=== PATIENT | female | born 1945 | race Caucasian/White ===

== ENCOUNTER 2019-02-21 08:22 | Outpatient (CLI) | payer MEDICARE, OTHER, SELFPAY ==
[2019-02-21 09:01] LABS: Abs Immature Grans 0.07 k/cumm (0.0-0.09); Absolute Basophil Count 0.04 k/cumm (0.0-0.2); Absolute Eosinophil Count 0.07 k/cumm (0.0-0.7); Absolute Lymphocyte Count 1.11 k/cumm (1.2-3.4); Absolute Monocyte Count 1.01 k/cumm (0.11-0.7); Absolute Neutrophil Count 1.77 k/cumm (1.2-6.7); Eosinophils % 1.7; HCT 26.5 % (36.0-46.0); HGB 8.2 g/dL (12.0-15.5); Immature Grans % 1.7; Lymphocytes % 27.3; Mean Corp. HGB Concentration 30.9 g/dL (32.0-36.0); Mean Corpuscular Volume 116.2 fL (80-95); Mean Platelet Volume 10.8 fL (8.0-11.0); Monocytes % 24.8; Neutrophils % 43.5; Platelet Count 246 x1000/uL (130-400); RBC 2.28 m/cumm (4.00-5.20); RBC Distribution Width 22.3 % (11.7-14.6); White Blood Cell Count 4.07 k/cumm (4.4-10.8)
[2019-02-21 09:50] LABS: Anisocytosis 2+; Diff Comment Agrees w/ Instrument
[2019-02-21 09:51] LABS: Basophilic Stippling Present; Hypochromasia 2+; Macrocytosis 2+; Microcytosis 2+; Polychromasia Present
[2019-02-21 09:53] LABS: Poikilocytes 2+
== END 2019-02-21 08:42 ==
PROVIDERS: PCP Internal Medicine; Visit Provider Internal Medicine
DX: D46.9 Myelodysplastic syndrome, unspecified (principal)
CPT/HCPCS: 36415; 86850; 86900; 86901; 85025

== ENCOUNTER → 2019-02-28 08:31 | Outpatient (CLI) | payer MEDICARE, OTHER, SELFPAY ==
[2019-02-28 09:02] LABS: Abs Immature Grans 0.01 k/cumm (0.0-0.09); Absolute Basophil Count 0.01 k/cumm (0.0-0.2); Absolute Eosinophil Count 0.04 k/cumm (0.0-0.7); Absolute Lymphocyte Count 0.58 k/cumm (1.2-3.4); Absolute Monocyte Count 0.02 k/cumm (0.11-0.7); Absolute Neutrophil Count 0.54 k/cumm (1.2-6.7); Basophils % 0.8; Eosinophils % 3.3; Immature Grans % 0.8; Lymphocytes % 48.3; Mean Corp. HGB Concentration 31.4 g/dL (32.0-36.0); Mean Corpuscular Hemoglobin 35.6 pg (27.0-33.0); Mean Corpuscular Volume 113.3 fL (80-95); Monocytes % 1.7; Neutrophils % 45.1; Platelet Count 142 x1000/uL (130-400); RBC Distribution Width 21.6 % (11.7-14.6)
[2019-02-28 09:34] LABS: HCT 20.4 % (36.0-46.0); HGB 6.4 g/dL (12.0-15.5)
[2019-02-28 09:35] LABS: Anisocytosis 3+; Diff Comment Agrees w/ Instrument
[2019-02-28 09:36] LABS: Hypochromasia 2+; Macrocytosis 2+; Microcytosis 2+; Poikilocytes 1+
[2019-02-28 13:38] VITALS: BP 119/60; PULSE 79; RESP 18; TEMP 36.5; O2SAT 99
[2019-02-28 13:53] VITALS: BP 114/56; PULSE 75; RESP 18; TEMP 36.6; O2SAT 97
[2019-02-28 14:23] VITALS: BP 135/47; PULSE 93; RESP 18; TEMP 36.7; O2SAT 98
[2019-02-28 15:30] VITALS: BP 147/68; PULSE 74; RESP 18; TEMP 36.5; O2SAT 98
== END ==
PROVIDERS: PCP Internal Medicine; Visit Provider Internal Medicine
DX: D46.9 Myelodysplastic syndrome, unspecified (principal)
CPT/HCPCS: 36415; 36430; 86850; 86900; 86901; 86920; 86945; 85025; P9016

== ENCOUNTER 2019-02-28 10:30 | Outpatient (RCR) | payer MEDICARE, OTHER, SELFPAY ==
[2019-02-28 12:43] VITALS: BP 107/62; PULSE 86; RESP 18; TEMP 36.5; O2SAT 98
[2019-02-28] MEDS: Normal Saline Flush 10 ML SYR IVP (14:50)
== END 2019-03-02 23:59 | disposition home or self-care (01) ==
LOC: INF 10:30
PROVIDERS: PCP Internal Medicine; Visit Provider Internal Medicine
DX: D46.9 Myelodysplastic syndrome, unspecified (principal); D70.9 Neutropenia, unspecified
CPT/HCPCS: 36415; 36430; 86850; 86900; 86901; 86920; 86945; 85025; P9016

== ENCOUNTER 2019-03-02 08:00 | Day surgery (SDC) | payer MEDICARE, OTHER, SELFPAY ==
--- NOTE | 2019-03-02 06:43 | W.PM.HP.N ---
Date of service: 03/02/19 Assessment and Plan (1) History of myelodysplastic syndrome: Current visit: Yes Status: Acute A\\ MDS that has progressed Her Oncologist has requested a Port P\\ Medi-port placement in the left or right subclavian vein Risks, benefits and complications reviewed with the patient. Complications include but are not limited to bleeding, infection, malfunction,pneumothorax, injury to veins or arteries, inability to place, blood clot and adverse reaction to the medications. Questions were entertained and answered to her satisfaction and she wished to proceed. No guarantees were given or implied. History of Present Illness Narrative: Mrs. Key is a pleasant 73 yo woman with a diagnoses of High Grade melodysplastic syndrome who was sent to see me for a Medi-port placement. Patient has had progression of her MDS on Arenesp. She has had some chest pain on exertion which she was told was due to her anemia. Review of Systems Cardiovascular Denies chest pain, Denies chest pain at rest, Denies chest pain with activity, Denies irregular heart rhythm, Denies palpitations and Denies dyspnea Respiratory Denies cough and Denies dyspnea Endocrine Denies palpitations [facility] Medical History (Updated 03/02/19 @ 08:35 by Gaby Ferguson) COPD (chronic obstructive pulmonary disease) (Chronic) Essential hypertension (Acute) History of anxiety (Acute) History of Connell's esophagus (Acute) History of depression (Acute) History of ETOH abuse (Acute) History of myelodysplastic syndrome (Acute) Hx of allergic rhinitis (Acute) Hx of cardiac murmur (Acute) Hx of cyst of breast (Acute) Hx of iron deficiency anemia (Acute) Hx of lichen planus (Acute) Osteoporosis (Chronic) Surgical History History of bone marrow biopsy (Acute) History of cholecystectomy (Chronic) History of colonoscopy (Chronic) History of esophagogastroduodenoscopy (EGD) (Chronic) Family History (Updated 03/02/19 @ 06:49 by Vero Tovar MD) Brother Heart disease Diabetes Mother Heart disease Emphysema lung Sister Diabetes Father Myocardial infarction (lateral wall) Social History (Updated 03/02/19 @ 06:49 by Vero Tovar MD) Smoking/Tobacco Use Status: Former Tobacco Use Quit Date: 08/03/87 Alcohol Intake: current Alcohol Intake frequency: 3 or more drinks per day Alcohol type: wine and hard liquor Drug use: Never Substance use type: does not use Details: alcohol: t-1, couple drinks Household members: spouse Number of Children: 1 Do you feel safe at home: Yes Do you feel safe in your relationship?: Yes Meds Home Medications Medication Instructions Recorded Confirmed Type amlodipine [Norvasc] 5 mg PO DAILY 03/01/19 03/02/19 History bupropion HCl 100 mg PO DAILY 03/01/19 03/02/19 History dexamethasone 0.5 mg PO BID 03/01/19 03/02/19 History fluticasone propionate [Flovent 2 puff INHALATION BID 03/01/19 03/02/19 History HFA] ipratropium-albuterol [Combivent 1 puff INHALATION Q6H PRN 03/01/19 03/02/19 History Respimat] ketoconazole 1 applic TOPICAL DAILY 03/01/19 03/02/19 History losartan [Cozaar] 100 mg PO DAILY 03/01/19 03/02/19 History montelukast [Singulair] 10 mg PO QHS 03/01/19 03/02/19 History ranitidine HCl [Zantac] 150 mg PO BID 03/01/19 03/02/19 History triamcinolone acetonide 1 applic TOPICAL DAILY PRN 03/01/19 03/02/19 History Allergies Allergy/AdvReac Type Severity Reaction Status Date / Time Influenza Virus Vaccines Allergy Intermediate Swelling/Ed Verified 03/02/19 08:23 anabell Penicillins Allergy Intermediate Skin Rash Verified 03/02/19 08:22 pneumococcal vaccine Allergy Intermediate Swelling/Ed Verified 03/02/19 08:22 [From Pneumovax 23] anabell Sulfa (Sulfonamide Allergy Intermediate Hives Verified 03/02/19 08:22 Antibiotics) Exam Const General: comfortable and no acute distress Orientation: alert and oriented x3 HENMT Head: normocephalic and atraumatic Resp Effort & Inspection: normal respiratory effort Auscultation: clear to auscultation bilaterally Cardio Rate: regular rate Rhythm: regular rhythm Heart Sounds: no gallops, murmur and no rubs Results Labs : 03/02/19 09:15
--- NOTE | 2019-03-02 06:58 | W.PM.OP ---
Date of service: 03/02/19 Time of Service: 10:50 Operative Note DATE OF PROCEDURE: 03/02/19 PRE-OP DIAGNOSIS: Myelodysplastic syndrome progression POST-OP DIAGNOSIS: same PROCEDURE: Left Subclavian vein Port placement SURGEON: Vero Tovar ANESTHESIA: MAC (ASA 3/ Abdirashid Root CRNA) ESTIMATED BLOOD LOSS: 5 PATHOLOGY: none sent COMPLICATIONS: None Patient was transported to: same day Patient's condition: stable Implants: Power Port isp MRI REF [id number] Indications: Mrs. Key is a pleasant 73 year old female with MDS which has been progressing. She is starting a new IV medication and her Oncologist has requested a Mediport. Risks, benefits, complications were reviewed with the patient in same-day surgery. Complications include but are not limited to bleeding, infection, pneumothorax, injury to subclavian vein or artery, hematoma or seroma, blood clot, malfunction and adverse reaction to the medication. Procedure Description: After informed consent was obtained the patient was taken to the operating room and placed in supine position. The patient was placed under deep sedation and once comfortable the right and left chest were prepped and draped in a sterile surgical fashion. At this point a timeout was done. The patient's name, date of , procedure to be done, potential complications, DVT prophylaxis, antibiotic given were all reviewed. Fire risk was assessed. Next 2% lidocaine mixed with half percent Marcaine with epi was injected around the clavicle on the left side as well as into the dermis and subcutaneous tissues in the left chest wall. A power port kit was opened and using the large 18-gauge needle the subclavian vein was found and venous blood was easily aspirated. The syringe was removed and the guidewire was placed without any difficulty into the subclavian vein. The needle was removed. Fluoroscopy was then done which confirmed the placement of the guidewire. A small incision was made in the skin with the guidewire entered. An incision was made with a 15 blade on the left chest wall. Using cautery a pocket was created for the port. Using the tunneler the catheter was tunneled from the newly created pocket to the guidewire. The dilator and sheath were then placed over the guidewire into the subclavian vein. The dilator and guidewire were removed. The catheter was then advanced through the sheath into the subclavian vein. While holding the catheter in place at the skin the sheath was removed. Fluoroscopy was then used again and the catheter was noted to be within the atrium and so it was pulled up until it was just above the atrium. The catheter was then cut to the right length and attached to the port. The port was placed into the pocket and fit snugly. The port was flushed with normal saline and blood was easily aspirated. The infusion needle was placed into the port and secured with a Central line dressing. The port was then flushed with another 10 cc of normal saline and then heparin. The skin was closed using 4-0 Vicryl. The skin was cleaned and dried and skin affix was applied to the port site as well as to the small stab incision underneath the clavicle. The patient was woken up and taken back to same day surgery in stable condition. Sponge, instrument, and needle counts were correct at the end of the case. A stat chest x-ray was ordered and is pending at the time of this dictation.
[2019-03-02 08:35] VITALS: BP 150/61; PULSE 94; RESP 18; TEMP 36; O2SAT 100
[2019-03-02] MEDS: Lactated Ringers 1,000 ML 80 ML IV (09:10)
[2019-03-02] MEDS: ceFAZolin 2 GM/50 ML BAG IVPB (10:10)
[2019-03-02] MEDS: Heparin 500 UNITS/5 ML SYRINGE (10:40)
[2019-03-02] MEDS: Lidocaine 2% Multi-Dose 50 ML VIAL (10:40)
--- NOTE | 2019-03-02 10:41 | DI.RAD_ITS ---
SYMPTOMS/DIAGNOSIS: PORT PLACEMENT FLUOROSCOPY: Fluoroscopy Time: 9.2 sec 9.60 mGy Under fluoroscopic control Dr. Tovar positioned a Port-a-Cath. The tip of which lies in the inferior portion of the superior vena cava. PORTABLE AP UPRIGHT CHEST: An AP upright image of the chest reveals a Port-a-Cath in good position. Its tip ending in the distal portion of the superior vena cava. The lungs are clear. There is no evidence of a pleural effusion.
[2019-03-02] MEDS: Acetaminophen 325 MG TAB 650 MG PO (11:28)
[2019-03-02 11:30] VITALS: BP 133/54; PULSE 78; RESP 16; TEMP 36.2; O2SAT 97
--- NOTE | 2019-03-02 11:46 | W.PM.DSUDISC ---
Discharge Plan Disposition Patient Disposition: HOME Condition: Good Discharge Details Reason For Visit: Port Placement Attending Provider: Vero Tovar Primary Care Provider: Marbella Adames Home Meds and New Rx's Prescriptions: Continued triamcinolone acetonide 0.5 % Ointment 1 applic TOPICAL DAILY PRNRF: 0 amlodipine [Norvasc] 5 mg Tablet 5 mg PO DAILY RF: 0 bupropion HCl 100 mg Tablet Sustained-Release 12 Hr 100 mg PO DAILY RF: 0 dexamethasone 0.5 mg/5 mL Solution 0.5 mg PO BID RF: 0 ranitidine HCl [Zantac] 150 mg Tablet 150 mg PO BID RF: 0 montelukast [Singulair] 10 mg Tablet 10 mg PO QHS RF: 0 Flovent HFA 220 mcg/actuation Hfa Aerosol Inhaler 2 puff INHALATION BID RF: 0 ketoconazole 2 % Cream 1 applic TOPICAL DAILY RF: 0 losartan [Cozaar] 100 mg Tablet 100 mg PO DAILY RF: 0 Combivent Respimat 20-100 mcg/actuation Mist 1 puff INHALATION Q6H PRNRF: 0 Discharge Instructions Instructions: Implanted Venous Access Port (GEN) Additional Instructions: Activity at Home after surgery: As tolerated. Don't place your left arm above your arm for more then a few minutes at a time Pain Medications: 1. Tylenol 650 mg every 6 hours as needed Other: 1. You may shower daily. Do not scrub the incisions 2. Do not soak the incisions for 1 week 3. You may alternate ice and heat as needed for pain and swelling Wound Care: 1. Keep the incisions clean and dry Please call our office if you develop: 1. Fevers >101.5 2. Redness and thick discharge from the wound If after hours please call the Hospital at and ask to speak to the on-call surgeon Activity:: Activity as Tolerated Diet:: As Tolerated Discharge Orders Discharge Orders: Discharge Order (Routine); Ordered 03/02/19 Ordered By: Vero Tovar DS: Diagnosis Discharge Diagnosis (1) History of myelodysplastic syndrome: Status: Acute
== END 2019-03-02 12:15 | disposition home or self-care (01) ==
PROVIDERS: PCP Internal Medicine; Visit Provider Surgery
PROC: (CPT 36561; principal; 2019-03-02 09:30)
DX: D46.9 Myelodysplastic syndrome, unspecified (principal); Z45.2 Encounter for adjustment and management of vascular access device; J44.9 Chronic obstructive pulmonary disease, unspecified; I10 Essential (primary) hypertension; K21.9 Gastro-esophageal reflux disease without esophagitis
CPT/HCPCS: 36561; 71045; 77001; 86850; 86900; 86901; 86920; NC; 85025; C1788; J0690; J2250

== ENCOUNTER 2019-03-06 08:42 | Inpatient (IN) | payer MEDICARE, OTHER, SELFPAY ==
[2019-03-06] VITALS (35 sets, daily range): BP systolic 96–143; BP diastolic 40–96; PULSE 77–93; RESP 13–22; TEMP 36.4–37.1; O2SAT 98–100
--- NOTE | 2019-03-06 09:18 | W.ED.GENAD ---
Discharge Plan Disposition Patient Disposition: [facility] INPATIENT Condition: Stable Discharge Details Chief Complaint: Palpitatns Clinical Impression: Symptomatic anemia, History of myelodysplastic syndrome, GI bleed, Status post chemotherapy Admit Date/Time: 03/06/19 12:44 Admit Provider: Andre Puente Attending Provider: Andre Puente Primary Care Provider: Marbella Adames ED Provider: Anita Coles Discharge Data Discharge Date/Time-TO BE ENTERED AT DEPARTURE: 03/06/19 14:00 Medical Decision Making 73-year-old female with history of myelodysplastic syndrome, alcohol abuse, COPD, anxiety and hypertension who presents with shortness of breath and palpitations for the past few days as well as dark stools with bright red bleeding this morning. She is two-week status post chemotherapy for her myelodysplastic syndrome. Her hemoglobin recently was 6.8 for which she received 2 units of PRBCs. She was told her palpitations and shortness of breath were likely due to her recent anemia. Vitals within normal limits. She appears nontoxic. No signs of airway compromise. Rectal exam revealed brownish-red stool which was Hemoccult positive. Her abdomen is soft and nontender. EKG notes a rate of 78, sinus with no acute ST ischemic changes. Differential diagnosis includes anemia secondary to recent chemotherapy versus GI bleed, ACS, dehydration, electrolyte abnormality. Will give bolus IV fluids, check screening labs, type and screen, chest x-ray. Labs and imaging reviewed. Hemoglobin 5.1. White blood cell count 1.11. Platelets 31. Neutrophils 44%. Troponin negative. Chest x-ray unremarkable. Case d/w hematology from [facility] --agree with plan for 2 units of PRBCs. Patient received decitabine for chemo 2 weeks ago. As patient has GI bleeding, recommend admission overnight. Patient initially was preferring to go home but is agreeable to admission. Discussed with blood bank, and 2 units of irradiated blood had already been ordered for planned transfusion tomorrow, but they will be arriving this afternoon and patient can receive these today. Case discussed with hospitalist --accepts patient for admission. Patient remains hemodynamically stable. [id number] --[facility] hematology called back to state they would like additional irradiated units of PRBCs ordered in case patient needs this. They would also recommend transfusion of a unit of platelets if patient starts bleeding more heavily. He also recommends patient be treated prophylactically with 500 mg Levaquin IV once daily, 200 mg fluconazole IV once daily, and acyclovir 400 mg IV twice daily in case of developing neutropenia considering patient's downtrending pancytopenia in the setting of myelodysplastic syndrome. Medical Records Medical records reviewed: Yes I reviewed the patient's medical records. Imaging Data Radiologic Study: Radiologist's impression: XR Chest, 2 Views EXAM DATE/TIME: 03/06/2019 9:55 AM CLINICAL HISTORY: 73 years old, female; Other: Palpitations, rule out acute disease TECHNIQUE: Imaging protocol: XR of the chest, 2 views. COMPARISON: CR XR PORTABLE CHEST AP POST LINE 03/02/2019 11:01 AM FINDINGS: Lungs: Lung lundy are stable . No focal consolidation Pleural space: Unremarkable. No pleural effusion. No pneumothorax. Heart/Mediastinum: Stable cardiac silhouette Vasculature: MediPort terminates in the superior vena cava. Bones/joints: Stable sclerotic density in the left humerus IMPRESSION: Stable appearance of the chest. No acute process Lab Data Lab results reviewed: Yes I reviewed the patient's lab results. Laboratory Tests Range/Units 03/06/19 11:05 Sodium (136-145) mmol/L 140 Potassium (3.5-5.1) mmol/L 4.3 Chloride (98-107) mmol/L 106 Carbon Dioxide (21.0-32.0) mmol/L 23.1 Anion Gap (3-11) mmol/L 10.9 BUN (7-18) mg/dL 27 H Creatinine (0.55-1.02) mg/dL 0.50 L Estimated GFR/1.73 m2 (mL/min/1.73m2) >= 60.00 Glucose (70-100) mg/dL 92 Calcium (8.5-10.1) mg/dL 8.3 L Magnesium (1.8-2.4) mg/dL 1.8 Total Bilirubin (0.2-1.0) mg/dL 0.8 AST (15-37) U/L 31 ALT (12-78) U/L 20 Alkaline Phosphatase (46-116) U/L 78 Troponin I (0.00-0.06) ng/mL < 0.05 Total Protein (6.4-8.2) g/dL 6.1 L Albumin (3.4-5.0) g/dL 3.2 L ECG Data Attestation: I personally reviewed and interpreted this ECG (s) as follows: Interpretation: Rate of 78, sinus, no acute ST elevation or depression. QTc 428. QRS 90 HPI General Mode of arrival: ambulatory. Date/Time Provider Initiated Documentation: 03/06/19 09:16. Limitations to Documentation: no limitations. Information obtained by: patient. HPI Narrative: Patient is a 73-year-old female with a history of myelodysplastic syndrome, anxiety, COPD, alcohol abuse, who presents the ED with complaint of palpitations and shortness of breath with ambulation for the past few days. She states she had a similar episode 2 weeks ago after she started chemotherapy. She states last week her hemoglobin was 6.8 and she was given 2 units of PRBCs. She states she was told by [facility] oncology that her palpitations were likely due to her anemia. She states also this morning she noted dark stool that was almost blackish mixed with bright red blood. She denies any fever, chest pain, abdominal pain, nausea or vomiting. states she drinks up to 3 glasses of wine daily. Patient states she has not drank much recently in the past few days. She had a port placed here 4 days ago. Related Data Home Medications Medication Instructions Recorded Confirmed Combivent Respimat 1 puff INHALATION Q6H PRN 03/01/19 03/06/19 Flovent HFA 2 puff INHALATION BID 03/01/19 03/06/19 amlodipine [Norvasc] 5 mg PO DAILY 03/01/19 03/06/19 bupropion HCl 100 mg PO DAILY 03/01/19 03/06/19 dexamethasone 0.5 mg PO BID 03/01/19 03/06/19 ketoconazole 1 applic TOPICAL DAILY 03/01/19 03/06/19 losartan [Cozaar] 100 mg PO DAILY 03/01/19 03/06/19 montelukast [Singulair] 10 mg PO QHS 03/01/19 03/06/19 ranitidine HCl [Zantac] 150 mg PO BID 03/01/19 03/06/19 triamcinolone acetonide 1 applic TOPICAL DAILY PRN 03/01/19 03/06/19 Allergies Allergy/AdvReac Type Severity Reaction Status Date / Time Influenza Virus Vaccines Allergy Intermediate Swelling/Ed Verified 03/02/19 08:23 anabell Penicillins Allergy Intermediate Skin Rash Verified 03/02/19 08:22 pneumococcal vaccine Allergy Intermediate Swelling/Ed Verified 03/02/19 08:22 [From Pneumovax 23] anabell Sulfa (Sulfonamide Allergy Intermediate Hives Verified 03/02/19 08:22 Antibiotics) General Stated Complaint: Palpitatns ARGELIA: 3 Review of Systems Review of Systems All systems reviewed & are unremarkable except as noted in HPI and below Constitutional Reports as per HPI, Denies chills and Denies fever(s) Eyes Denies blurry vision ENT Denies dizziness, Denies sore throat and Denies throat swelling Cardiovascular Denies chest pain, Reports palpitations and Reports dyspnea Respiratory Denies cough and Reports dyspnea Gastrointestinal Denies abdominal pain, Denies diarrhea and Denies vomiting Genitourinary Denies hematuria and Denies dysuria Musculoskeletal Denies back pain and Denies numbness Integumentary/Breasts Denies lesions and Denies rash Neurologic Denies dizziness, Denies focal weakness and Denies numbness Endocrine Reports palpitations Allergic/Immunologic Denies throat swelling [facility] Medical History (Updated 03/06/19 @ 15:43 by Mami Burnett NP) Alcohol use (Acute) Anemia (Chronic) COPD (chronic obstructive pulmonary disease) (Chronic) COPD (chronic obstructive pulmonary disease) (Chronic) Essential hypertension (Acute) History of anxiety (Acute) History of Connell's esophagus (Acute) History of depression (Acute) History of ETOH abuse (Acute) History of myelodysplastic syndrome (Acute) HTN (hypertension) (Chronic) Hx of allergic rhinitis (Acute) Hx of cardiac murmur (Acute) Hx of cyst of breast (Acute) Hx of iron deficiency anemia (Acute) Hx of lichen planus (Acute) Osteoporosis (Chronic) Surgical History History of bone marrow biopsy (Acute) History of cholecystectomy (Chronic) History of colonoscopy (Chronic) History of esophagogastroduodenoscopy (EGD) (Chronic) Family History Brother Heart disease Diabetes Mother Heart disease Emphysema lung Sister Diabetes Father Myocardial infarction (lateral wall) Social History Smoking/Tobacco Use Status: Never Alcohol Intake: current Alcohol Intake frequency: 3 or more drinks per day Alcohol type: wine and hard liquor Drug use: Never Substance use type: does not use Details: alcohol: t-1, couple drinks Household members: spouse Number of Children: 1 Do you feel safe at home: Yes Do you feel safe in your relationship?: Yes Exam Const General: cooperative, healthy appearing and no acute distress HENMT Head: normal to inspection Face and sinus: normal facial exam Eyes General: appearance normal, both eyes and all related structures Pupils: PERRL EOM: EOM intact bilaterally Neck Neck: normal visual inspection and No submandibular swelling Lymphatic: no lymphadenopathy noted Chest Chest: normal inspection of the chest, no tenderness and other (2 cm incision scar tender to palp c/w recent port placement) Resp Effort & Inspection: normal respiratory effort and able to speak in complete sentences Auscultation: clear to auscultation bilaterally Cardio Rate: regular rate Rhythm: regular rhythm GI Inspection: normal to inspection Palpation: soft, not firm, not rigid and nontender Auscultation: normal bowel sounds Rectal Exam - female: visual inspection normal and heme positive stool (brown colored stool w/ reddish color ) Rectal exam heme positive - female: 3+ Skin General skin exam: no rashes or lesions noted Neuro General: alert, awake and oriented x3 Cognition: normal cognition Speech: speech normal Motor: muscle tone normal throughout Sensory Exam: no sensory deficits noted Extrem General: normal to inspection, full ROM, normal capillary refill, no calf tenderness bilaterally and no edema Psych Appearance: grossly normal Mental Status: mental status grossly normal Speech and Movement: speech and movement normal Affect: normal affect Course Vital Signs Temperature 98.2 F 03/06/19 09:01 Pulse 80 03/06/19 09:01 Respiratory Rate 16 03/06/19 09:01 Blood Pressure 143/72 H 03/06/19 09:01 Pulse Oximetry 99 03/06/19 09:01 Temperature 98.2 F 03/06/19 09:01 Temperature Source Temporal Artery Scan 03/06/19 09:01 Pulse 80 03/06/19 09:01 Respiratory Rate 16 03/06/19 09:01 Respiratory Effort Non-Labored 03/06/19 09:10 Blood Pressure 143/72 H 03/06/19 09:01 Blood Pressure Position Supine 03/06/19 09:01 Pulse Oximetry 99 03/06/19 09:01 Oxygen Delivery Method Room Air 03/06/19 09:01 Oxygen Flow Rate 0 03/06/19 09:01
--- NOTE | 2019-03-06 10:29 | DI.RAD_ITS ---
SYMPTOMS/DIAGNOSIS: PALPITATIONS, ? ACUTE DISEASE PA AND LATERAL CHEST: Comparison is made with [id number]. A port is again noted. The heart size is normal. There is calcification at the aorta. The lungs appear clear. IMPRESSION: No acute abnormality.
--- NOTE | 2019-03-06 11:00 | DI.VRAD_ITS ---
EXAM: XR Chest, 2 Views EXAM DATE/TIME: 03/06/2019 9:55 AM CLINICAL HISTORY: 73 years old, female; Other: Palpitations, rule out acute disease TECHNIQUE: Imaging protocol: XR of the chest, 2 views. COMPARISON: CR XR PORTABLE CHEST AP POST LINE 03/02/2019 11:01 AM FINDINGS: Lungs: Lung lundy are stable . No focal consolidation Pleural space: Unremarkable. No pleural effusion. No pneumothorax. Heart/Mediastinum: Stable cardiac silhouette Vasculature: MediPort terminates in the superior vena cava. Bones/joints: Stable sclerotic density in the left humerus IMPRESSION: Stable appearance of the chest. No acute process Dictated and Authenticated by: Tesha Caldwell MD. Ordering:JACQUELINE Howard MD
[2019-03-06 11:15] LABS: Abs Immature Grans 0.01 k/cumm (0.0-0.09); Absolute Eosinophil Count 0.01 k/cumm (0.0-0.7); Eosinophils % 0.9; Immature Grans % 0.9; Lymphocytes % 54.1; Mean Corp. HGB Concentration 32.5 g/dL (32.0-36.0); Mean Corpuscular Hemoglobin 32.9 pg (27.0-33.0); Mean Corpuscular Volume 101.3 fL (80-95); Neutrophils % 44.1; RBC 1.55 m/cumm (4.00-5.20); RBC Distribution Width 21.2 % (11.7-14.6)
[2019-03-06] MEDS: Normal Saline 500 ML IV (11:18)
[2019-03-06 11:34] LABS: ALT 20 U/L (12-78); AST 31 U/L (15-37); Albumin 3.2 g/dL (3.4-5.0); Alkaline Phosphatase 78 U/L (46-116); Anion Gap 10.9 mmol/L (3-11); BUN 27 mg/dL (7-18); Bilirubin, Total 0.8 mg/dL (0.2-1.0); CO2 23.1 mmol/L (21.0-32.0); Calcium 8.3 mg/dL (8.5-10.1); Chloride 106 mmol/L (98-107); Glucose 92 mg/dL (70-100); Magnesium 1.8 mg/dL (1.8-2.4); Sodium 140 mmol/L (136-145); Total Protein 6.1 g/dL (6.4-8.2)
[2019-03-06 11:35] LABS: Troponin I < 0.05 ng/mL (0.00-0.06)
[2019-03-06 11:36] LABS: Potassium 4.3 mmol/L (3.5-5.1)
[2019-03-06 11:37] LABS: Absolute Neutrophil Count 0.49 k/cumm (1.2-6.7); HCT 15.7 % (36.0-46.0); HGB 5.1 g/dL (12.0-15.5); White Blood Cell Count 1.11 k/cumm (4.4-10.8)
[2019-03-06 12:12] LABS: Platelet Count 31 x1000/uL (130-400)
[2019-03-06 12:24] LABS: Anisocytosis 2+; Diff Comment Diff Reviewed; Hypochromasia 2+; Poikilocytes 2+
[2019-03-06 13:53] LABS: Bilirubin Negative (Negative); Blood Negative (Negative); Clarity Clear (Clear); Glucose Negative (Negative); Ketones 15 mg/dL (Negative); Leukocyte Esterase Negative (Negative); Nitrite Negative (Negative); Urobilinogen 0.2 EU/dL (Up TO 0.2)
--- NOTE | 2019-03-06 15:06 | W.PM.HP.N ---
Date of service: 03/06/19 Time of Service: 15:06 Assessment and Plan (1) History of myelodysplastic syndrome: Start date: 03/06/19 Start time: 15:27 Current visit: No Status: Acute Recently started infusions with chemo, last chemo on Thursday. Received blood transfusion 1 unit, starting having palpitation and feeling weak over last couple of days worsening. H/H 5.1/15.7, transfused PRBC in ED, repeat h/h 1999. Oral mucosa pale, conjunctiva pale. Also c/o bright red blood in stool, history of hemmrrhoids. Monitor on telemetry and repeat am labs. (2) Anemia: Start date: 03/06/19 Start time: 15:30 Current visit: Yes Secondary to MDS. see above (3) COPD (chronic obstructive pulmonary disease): Start date: 03/06/19 Start time: 15:30 Current visit: Yes Status: Chronic Not exacerbated at this time. LSC, continue home regimen. (4) HTN (hypertension): Start date: 03/06/19 Start time: 15:30 Current visit: Yes Status: Chronic normal at this time, hold meds while patient is anemic (5) Blood in stool: Start date: 03/06/19 Start time: 15:32 Current visit: Yes Status: Acute Two bowel movements with bright red blood. Continue monitor likely not GI bleed. History of hemorrhoids. Denies abdominal pain, nausea vomiting and diarrhea. (6) Alcohol use: Start date: 03/06/19 Start time: 15:33 Current visit: Yes endorses drinking 2 glasses of wine nightly. Monitor for withdrawal. Per patient drinks more than 2 glasses of wine a day. (7) Neutropenia: Start date: 03/06/19 Start time: 15:43 Current visit: Yes Status: Acute ANC of 0.49 per hematology at [facility] [place] recommend levaquin, fluconazole, and Acyclovir. History of Present Illness Chief Complaint: ANEMIA, MDS Narrative: Very pleasant 73 y.o. old female with PMH of Myleodysplastic syndrome, COPD (not requiring oxygen), HTN, Barretts esophagus presenting to [facility] Emergency department today after having palpitations for that last two days. She is an active woman who likes to sail and go out on her boat. She does endorse drinking two glasses of wine nightly. For her myleodysplastic syndrome she has recently started chemo infusions. Mediport was implanted a couple weeks ago and she has been receiving chemo and blood transfusions through [facility]. Thursday she received a chemo transfusion and a blood transfusion. Thursday she started developing palpitations without dizziness or syncope. Palpitations continued through Thursday and she started feeling weak as well. Today she was feeling weaker and started having bright red blood in stool x 2. She reports no abdominal pain and presented to the ED. Labs found her to have a white count 0f 1.1 H/H of 5.1 and 15.7. Her platelet count is 31 with anc 0.49. She appears anemic. she is admitted to / with telemetry. She was trasfused in the ED and repeat H/H for 1999. Monitor labs. She denies chest pain, shortness of breath n/v/d. Review of Systems Review of Systems All systems reviewed & are unremarkable except as noted in HPI and below Constitutional Reports weakness Eyes Reports system reviewed and no additional complaints, except as docu ENT Reports system reviewed and no additional complaints, except as docu Cardiovascular Reports system reviewed and no additional complaints, except as docu Respiratory Reports system reviewed and no additional complaints, except as docu Gastrointestinal Reports as per HPI and Reports hematochezia Genitourinary Reports system reviewed and no additional complaints, except as docu Musculoskeletal Reports system reviewed and no additional complaints, except as docu Integumentary/Breasts Reports system reviewed and no additional complaints, except as docu Neurologic Reports as per HPI and Reports weakness Psychiatric Reports system reviewed and no additional complaints, except as docu Endocrine Reports system reviewed and no additional complaints, except as docu Hematologic/Lymphatic Reports as per HPI Allergic/Immunologic Reports system reviewed and no additional complaints, except as docu PFSH Medical History COPD (chronic obstructive pulmonary disease) (Chronic) Essential hypertension (Acute) History of anxiety (Acute) History of Connell's esophagus (Acute) History of depression (Acute) History of ETOH abuse (Acute) History of myelodysplastic syndrome (Acute) Hx of allergic rhinitis (Acute) Hx of cardiac murmur (Acute) Hx of cyst of breast (Acute) Hx of iron deficiency anemia (Acute) Hx of lichen planus (Acute) Osteoporosis (Chronic) Surgical History History of bone marrow biopsy (Acute) History of cholecystectomy (Chronic) History of colonoscopy (Chronic) History of esophagogastroduodenoscopy (EGD) (Chronic) Family History Brother Heart disease Diabetes Mother Heart disease Emphysema lung Sister Diabetes Father Myocardial infarction (lateral wall) Social History Smoking/Tobacco Use Status: Never Alcohol Intake: current Alcohol Intake frequency: 3 or more drinks per day Alcohol type: wine and hard liquor Drug use: Never Substance use type: does not use Details: alcohol: t-1, couple drinks Household members: spouse Number of Children: 1 Do you feel safe at home: Yes Do you feel safe in your relationship?: Yes Meds Home Medications Medication Instructions Recorded Confirmed Type Combivent Respimat 1 puff INHALATION Q6H PRN 03/01/19 03/02/19 History Flovent HFA 2 puff INHALATION BID 03/01/19 03/02/19 History amlodipine [Norvasc] 5 mg PO DAILY 03/01/19 03/06/19 History bupropion HCl 100 mg PO DAILY 03/01/19 03/06/19 History dexamethasone 0.5 mg PO BID 03/01/19 03/06/19 History ketoconazole 1 applic TOPICAL DAILY 03/01/19 03/06/19 History losartan [Cozaar] 100 mg PO DAILY 03/01/19 03/06/19 History montelukast [Singulair] 10 mg PO QHS 03/01/19 03/06/19 History ranitidine HCl [Zantac] 150 mg PO BID 03/01/19 03/06/19 History triamcinolone acetonide 1 applic TOPICAL DAILY PRN 03/01/19 03/06/19 History Allergies Allergy/AdvReac Type Severity Reaction Status Date / Time Influenza Virus Vaccines Allergy Intermediate Swelling/Ed Verified 03/02/19 08:23 anabell Penicillins Allergy Intermediate Skin Rash Verified 03/02/19 08:22 pneumococcal vaccine Allergy Intermediate Swelling/Ed Verified 03/02/19 08:22 [From Pneumovax 23] anabell Sulfa (Sulfonamide Allergy Intermediate Hives Verified 03/02/19 08:22 Antibiotics) Exam Const General: cooperative, comfortable and no acute distress Nutritional Appearance: thin Orientation: alert, awake and oriented x3 HENMT Head: normal to inspection Ears: hearing grossly normal bilaterally Mouth: abnormal oral mucosae and other (dry and pale) Teeth and gingiva: fair dentition Eyes Conjunctivae: conjunctival abnormality and other (pale) Pupils: PERRL Neck Neck: normal visual inspection Lymphatic: no lymphadenopathy noted and no lymphedema noted Chest Chest: normal inspection of the chest Resp Effort & Inspection: normal respiratory effort, able to speak in complete sentences and abnormal respiratory pattern Auscultation: clear to auscultation bilaterally Cardio Jugular venous pressure: no JVD Rate: regular rate Rhythm: regular rhythm Heart Sounds: murmur (grade I/II) GI Inspection: normal to inspection Palpation: soft and no hepatosplenomegaly Auscultation: normal bowel sounds General: deferred Back/Spine/Pelvis Back: no CVA tenderness Skin Wounds: wounds noted (surgical wound to newly implanted mediport on left upper chest wall) Neuro General: alert, awake and oriented x3 Cognition: normal cognition Speech: speech normal Extrem General: normal to inspection Right upper extremity: normal to inspection Left upper extremity: normal to inspection Right lower extremity: normal to inspection Left lower extremity: normal to inspection Psych Appearance: grossly normal Affect: normal affect Results Labs : 03/06/19 11:05 03/06/19 11:05 Laboratory Results - last 24 hr 03/06/19 03/06/19 03/06/19 11:05 11:05 11:40 WBC 1.11 L* RBC 1.55 L Hgb 5.1 L* Hct 15.7 L* MCV 101.3 H MCH 32.9 MCHC 32.5 RDW 21.2 H Plt Count 31 L D MPV Immature Gran % 0.9 Neutrophils % 44.1 Lymphocytes % 54.1 Monocytes % 0.0 Eosinophils % 0.9 Basophils % 0.0 Absolute Neutrophils 0.49 L* Absolute Lymphocytes 0.60 L Absolute Monocytes 0.00 L Absolute Eosinophils 0.01 Absolute Basophils 0.00 Differential Comment Diff reviewed RBC Morphology See below Hypochromasia 2+ Poikilocytosis 2+ Anisocytosis 2+ Sodium 140 Potassium 4.3 Chloride 106 Carbon Dioxide 23.1 Anion Gap 10.9 BUN 27 H Creatinine 0.50 L Estimated GFR/1.73 m2 >= 60.00 Glucose 92 Calcium 8.3 L Magnesium 1.8 Total Bilirubin 0.8 AST 31 ALT 20 Alkaline Phosphatase 78 Troponin I < 0.05 Total Protein 6.1 L Albumin 3.2 L Urine Color Urine Clarity Urine pH Ur Specific [place] Urine Protein Urine Ketones Urine Blood Urine Nitrite Urine Bilirubin Urine Urobilinogen Ur Leukocyte Esterase Urine Glucose Patient ABO/Rh O Positive Antibody Screen Negative Crossmatch See Detail 03/06/19 13:47 WBC RBC Hgb Hct MCV MCH MCHC RDW Plt Count MPV Immature Gran % Neutrophils % Lymphocytes % Monocytes % Eosinophils % Basophils % Absolute Neutrophils Absolute Lymphocytes Absolute Monocytes Absolute Eosinophils Absolute Basophils Differential Comment RBC Morphology Hypochromasia Poikilocytosis Anisocytosis Sodium Potassium Chloride Carbon Dioxide Anion Gap BUN Creatinine Estimated GFR/1.73 m2 Glucose Calcium Magnesium Total Bilirubin AST ALT Alkaline Phosphatase Troponin I Total Protein Albumin Urine Color Yellow Urine Clarity Clear Urine pH 5.0 Ur Specific [place] 1.010 Urine Protein Negative Urine Ketones 15 H Urine Blood Negative Urine Nitrite Negative Urine Bilirubin Negative Urine Urobilinogen 0.2 Ur Leukocyte Esterase Negative Urine Glucose Negative Patient ABO/Rh Antibody Screen Crossmatch Last Vital Signs Temp 37.1 C 03/06/19 14:04 Pulse 85 03/06/19 14:20 Resp 16 03/06/19 14:04 BP 125/46 L 03/06/19 14:04 Pulse Ox 98 03/06/19 14:04
[2019-03-06] MEDS: Fluconazole 100 MG TAB 200 MG PO (15:51)
[2019-03-06] MEDS: Magnesium Oxide 400 MG TAB PO (15:51)
[2019-03-06] MEDS: Pantoprazole 40 MG VIAL IVP (15:52)
[2019-03-06] MEDS: levoFLOXacin 500 MG TAB PO (15:52)
[2019-03-06] MEDS: Normal Saline Flush 10 ML SYR IVP (15:54)
[2019-03-06 16:04] LABS: HGB 5.2 g/dL (12.0-15.5)
[2019-03-06] MEDS: Acyclovir 400 MG TAB PO (20:48)
[2019-03-06] MEDS: Dexamethasone 1 MG TAB 0.5 MG PO (20:48)
[2019-03-06] MEDS: Mylanta Suspension 30 ML CUP PO (20:49)
[2019-03-06] MEDS: Montelukast 10 MG TAB PO (22:28)
[2019-03-06] MEDS: MULTIVITAMIN 10 ML, THIAMINE 100 MG, FOLIC ACID 1 MG in DEXTROSE 5%-0.45% SALINE 1,000 ML 42 ML IV (23:25)
[2019-03-07] VITALS (18 sets, daily range): BP systolic 109–166; BP diastolic 46–92; PULSE 65–85; RESP 15–18; TEMP 35.1–37.2; O2SAT 97–100
[2019-03-07 00:10] LABS: HGB 7.2 g/dL (12.0-15.5)
[2019-03-07 00:20] LABS: HCT 20.7 % (36.0-46.0)
[2019-03-07 07:22] LABS: Abs Immature Grans 0.01 k/cumm (0.0-0.09); Mean Corp. HGB Concentration 34.4 g/dL (32.0-36.0); Mean Corpuscular Volume 93.2 fL (80-95); RBC 2.06 m/cumm (4.00-5.20); RBC Distribution Width 17.6 % (11.7-14.6)
[2019-03-07 07:34] LABS: Anion Gap 10.5 mmol/L (3-11); BUN 19 mg/dL (7-18); CO2 23.5 mmol/L (21.0-32.0); CREATININE 0.58 mg/dL (0.55-1.02); Calcium 7.6 mg/dL (8.5-10.1); Chloride 108 mmol/L (98-107); Glucose 110 mg/dL (70-100); Magnesium 1.7 mg/dL (1.8-2.4); Potassium 3.6 mmol/L (3.5-5.1); Sodium 142 mmol/L (136-145)
[2019-03-07 07:55] LABS: HCT 19.2 % (36.0-46.0); HGB 6.6 g/dL (12.0-15.5)
[2019-03-07 07:56] LABS: Platelet Count 18 x1000/uL (130-400)
[2019-03-07 07:58] LABS: Absolute Eosinophil Count 0.02 k/cumm (0.0-0.7); Absolute Lymphocyte Count 0.52 k/cumm (1.2-3.4); Absolute Monocyte Count 0.02 k/cumm (0.11-0.7); Absolute Neutrophil Count 0.32 k/cumm (1.2-6.7)
[2019-03-07 07:59] LABS: Anisocytosis 2+
[2019-03-07 08:00] LABS: Diff Comment Manual Differential; Poikilocytes 1+
[2019-03-07] MEDS: levoFLOXacin 500 MG TAB PO (08:09)
[2019-03-07] MEDS: Fluconazole 100 MG TAB 200 MG PO (08:10)
[2019-03-07] MEDS: Multivitamin TAB 1 TAB PO (08:12)
[2019-03-07] MEDS: Acyclovir 400 MG TAB PO ×2 (08:12→20:13)
[2019-03-07] MEDS: Acetaminophen 325 MG TAB 650 MG PO (09:03)
[2019-03-07] MEDS: buPROPion-CR 100 MG TABCR PO (09:03)
[2019-03-07] MEDS: Dexamethasone 1 MG TAB 0.5 MG PO ×2 (09:04→20:13)
[2019-03-07] MEDS: diphenhydrAMINE 25 MG CAP PO (09:04)
--- NOTE | 2019-03-07 09:47 | INITIAL_ITS ---
- If Service Date Differs Date of service: 03/07/19 Time of Service: 09:48 Care Management Initial Assess REASON FOR HOSPITALIZATION:: History of myelodysplastic syndrome PAST MEDICAL HISTORY/PAST SURGICAL HISTORY:: Medical History: COPD (chronic obstructive pulmonary disease) (Chronic). Essential hypertension (Acute). History of anxiety (Acute). History of Connell's esophagus (Acute). History of depression (Acute). History of ETOH abuse (Acute). History of myelodysplastic syndrome (Acute). Hx of allergic rhinitis (Acute). Hx of cardiac murmur (Acute). Hx of cyst of breast (Acute). Hx of iron deficiency anemia (Acute). Hx of lichen planus (Acute). Osteoporosis (Chronic). Surgical History: History of bone marrow biopsy (Acute). History of cholecystectomy (Chronic). History of colonoscopy (Chronic). History of esophagogastroduodenoscopy (EGD) (Chronic) PREVIOUS FUNCTIONAL STATUS/SOCIAL/FAMILY SUPPORTS:: Rachel lives with her in a single family home in [place], [place] Their daughter lives next door on a large farm and is a strong support for Rachel. Rachel and her spend the quinteros at [facility] in [place]. They also have close friends there that can be of assistance.They are retired. Rachel is independent with all activities and care. CURRENT FUNCTIONAL STATUS:: Rachel was sitting up in bed when CM came to visit. She was agreeable to answering questions but was not very talkative at first. She shared some experiences about the farm that she and her inherited and gifted to their daughter and talked a bit about their quinteros at [facility]. She is curreently receiving blood and hopes to be able to be discharged soon. ADVANCE DIRECTIVES:: None on file Has patient been provided with information about the portal?: No Did the patient sign up for the portal?: No CODE STATUS:: Full Code INSURANCE COVERAGE / FINANCIAL ISSUES:: Medicare. [employer] CURRENT HOME/COMMUNITY SERVICES/EQUIPMENT:: none PRIMARY CARE PHYSICIAN:: Marbella Adames POTENTIAL DISCHARGE NEEDS:: Follow up with Oncologist, PCP and discharge plan of care PATIENT/FAMILY EDUCATION NEEDS:: Discharge plan, limitations, follow up plan, Ask Me Three. ANTICIPATED BARRIERS TO DISCHARGE:: none identified TRANSPORTATION:: via private vehicle with family when ready PLAN:: Rachel will be discharged home with no services when ready. She will follow up with her PCP and oncologist. CM will continue to provide support to Rachel, her family and identified discharge needs or concerns.
--- NOTE | 2019-03-07 10:10 | NUR.NOTE ---
Nursing Note: patient has 2 ordered units of prbc , no reactions noted thus far, banana bag was paused, provider is aware, that that could be an excess of fluid administered, will resume banana bag at the end of the second nit
--- NOTE | 2019-03-07 11:28 | W.PM.PROGNOT ---
Date of Service Date of service: 03/07/19 Time of Service: 11:28 Assessment and Plan (1) History of myelodysplastic syndrome: Start date: 03/07/19 Start time: 11:44 Current visit: No Status: Acute Despite transfusion of 2 units PRBC patient H/H decreased with ANC decreased to 0.32, [place] [facility] [place] at this time recommend transfuse 2 units PRBC, and if platelets fall below 10 infuse platelets. Will recheck h/h four hours after 2nd transfusion (2) Anemia: Start date: 03/07/19 Start time: 11:49 Current visit: Yes Secondary to MDS. see above (3) COPD (chronic obstructive pulmonary disease): Start date: 03/07/19 Start time: 11:49 Current visit: Yes Status: Chronic Not exacerbated at this time. LSC, combivent and flovent home meds used (4) HTN (hypertension): Start date: 03/07/19 Start time: 11:50 Current visit: Yes Status: Chronic hold medication and monitor at this time in the setting of hypovolemia due to anemia (5) Blood in stool: Start date: 03/07/19 Start time: 11:56 Current visit: Yes Status: Acute no bloody bms at this time. Rectal exam revealed hemorrhoids in vault with positive hematest. Stool was light brown (6) Alcohol use: Start date: 03/07/19 Start time: 11:58 Current visit: Yes endorses drinking 2 glasses of wine nightly. Monitor for withdrawal. Per patient drinks more than 2 glasses of wine a day. CIWA 0 at this time (7) Neutropenia: Start date: 03/07/19 Start time: 12:01 Current visit: Yes Status: Acute ANC dropped today to of 0.32 per [place] [facility] [place] levaquin, fluconazole, and Acyclovir. Continue to monitor Subjective Patient reports: other Interval history since last seen: Feeling depressed today. Not having any pain. H/H and ANC level did drop. Hematology Dr. August Saleh [place] [facility] [place] of patient declining H/H and ANC despite transfusion. He recommends 2 units and if platelets fall below 10 transfuse. 2 units PRBC ordered. Neutropenic precautions in place. She has not had rectal bleeding since yesterday. Hong test positive for trace blood. Exam Const General: cooperative, comfortable and no acute distress Nutritional Appearance: thin Orientation: alert, awake and oriented x3 HENMT Head: normal to inspection Ears: hearing grossly normal bilaterally Mouth: abnormal oral mucosae and other (dry and pale) Teeth and gingiva: fair dentition Eyes Conjunctivae: conjunctival abnormality and other (pale) Pupils: PERRL Neck Neck: normal visual inspection Lymphatic: no lymphadenopathy noted and no lymphedema noted Chest Chest: normal inspection of the chest Resp Effort & Inspection: normal respiratory effort, able to speak in complete sentences and abnormal respiratory pattern Auscultation: clear to auscultation bilaterally Cardio Jugular venous pressure: no JVD Rate: regular rate Rhythm: regular rhythm Heart Sounds: murmur (grade I/II) GI Inspection: normal to inspection Palpation: soft and no hepatosplenomegaly Auscultation: normal bowel sounds General: deferred Back/Spine/Pelvis Back: no CVA tenderness Skin Wounds: wounds noted (surgical wound to newly implanted mediport on left upper chest wall) Neuro General: alert, awake and oriented x3 Cognition: normal cognition Speech: speech normal Extrem General: normal to inspection Right upper extremity: normal to inspection Left upper extremity: normal to inspection Right lower extremity: normal to inspection Left lower extremity: normal to inspection Psych Appearance: grossly normal Affect: normal affect Objective Objective Clinical Data: Abnormal lab results 03/06/19 03/06/19 03/06/19 Range/Units 11:05 11:05 11:40 WBC 1.11 L* (4.4-10.8) k/cumm RBC 1.55 L (4.00-5.20) m/cumm Hgb 5.1 L* (12.0-15.5) g/dL Hct 15.7 L* (36.0-46.0) % MCV 101.3 H (80-95) fL RDW 21.2 H (11.7-14.6) % Plt Count 31 L D (130-400) x1000/uL Absolute Neutrophils 0.49 L* (1.2-6.7) k/cumm Absolute Lymphocytes 0.60 L (1.2-3.4) k/cumm Absolute Monocytes 0.00 L (0.11-0.7) k/cumm Chloride (98-107) mmol/L BUN 27 H (7-18) mg/dL Creatinine 0.50 L (0.55-1.02) mg/dL Glucose (70-100) mg/dL Calcium 8.3 L (8.5-10.1) mg/dL Magnesium (1.8-2.4) mg/dL Total Protein 6.1 L (6.4-8.2) g/dL Albumin 3.2 L (3.4-5.0) g/dL Urine Ketones (Negative) mg/dL Crossmatch See Detail 03/06/19 03/06/19 03/07/19 Range/Units 13:47 15:41 00:00 WBC (4.4-10.8) k/cumm RBC (4.00-5.20) m/cumm Hgb 5.2 L* 7.2 L (12.0-15.5) g/dL Hct 16.0 L* 20.7 L* D (36.0-46.0) % MCV (80-95) fL RDW (11.7-14.6) % Plt Count (130-400) x1000/uL Absolute Neutrophils (1.2-6.7) k/cumm Absolute Lymphocytes (1.2-3.4) k/cumm Absolute Monocytes (0.11-0.7) k/cumm Chloride (98-107) mmol/L BUN (7-18) mg/dL Creatinine (0.55-1.02) mg/dL Glucose (70-100) mg/dL Calcium (8.5-10.1) mg/dL Magnesium (1.8-2.4) mg/dL Total Protein (6.4-8.2) g/dL Albumin (3.4-5.0) g/dL Urine Ketones 15 H (Negative) mg/dL Crossmatch 03/07/19 03/07/19 Range/Units 06:15 06:15 WBC 0.90 L* (4.4-10.8) k/cumm RBC 2.06 L (4.00-5.20) m/cumm Hgb 6.6 L* (12.0-15.5) g/dL Hct 19.2 L* (36.0-46.0) % MCV (80-95) fL RDW 17.6 H (11.7-14.6) % Plt Count 18 L* (130-400) x1000/uL Absolute Neutrophils 0.32 L* (1.2-6.7) k/cumm Absolute Lymphocytes 0.52 L (1.2-3.4) k/cumm Absolute Monocytes 0.02 L (0.11-0.7) k/cumm Chloride 108 H (98-107) mmol/L BUN 19 H D (7-18) mg/dL Creatinine (0.55-1.02) mg/dL Glucose 110 H (70-100) mg/dL Calcium 7.6 L (8.5-10.1) mg/dL Magnesium 1.7 L (1.8-2.4) mg/dL Total Protein (6.4-8.2) g/dL Albumin (3.4-5.0) g/dL Urine Ketones (Negative) mg/dL Crossmatch Vital Signs Temperature 36.1 C L 03/07/19 10:20 Temperature Source Tympanic 03/07/19 08:05 Pulse 80 03/07/19 10:20 Pulse Rhythm Regular 03/06/19 22:05 Pulse 83 03/06/19 09:40 Respiratory Rate 16 03/07/19 10:20 Respiratory Effort Non-Labored 03/06/19 22:05 Respiratory Depth Normal 03/06/19 22:05 Respiratory Pattern Normal 03/06/19 22:05 Blood Pressure 144/46 H 03/07/19 10:20 Blood Pressure Mean 63 03/06/19 12:46 Blood Pressure Position Supine 03/06/19 09:01 Pulse Oximetry 100 03/07/19 10:20 Oxygen Delivery Method Room Air 03/07/19 10:20 Oxygen Flow Rate 0 03/07/19 10:20 Pain Level 0 03/07/19 04:05 Comment 03/06/19 20:05 Intake & Output 03/06/19 03/06/19 03/07/19 11:59 23:59 11:59 Intake Total 1620 / 1620 439.6 / 439.6 Output Total 650 / 650 300 / 300 Balance 970 / 970 139.6 / 139.6 Weight 81.647 kg 81.647 kg 56.7 kg Intake: IV 439.6 / 439.6 Oral 420 / 420 Blood Product 1200 / 1200 0 / 0 Rbc Leuko Reduced Unit 600 / 600 [id number] Rbc Leuko Reduced Unit 600 / 600 [id number] Rbc Leuko Reduced Unit 0 / 0 [id number] Other 0 / 0 Rbc Leuko Reduced Unit 0 / 0 [id number] Output: Urine 650 / 650 300 / 300 Other: Urine Color Yellow Yellow Urine Appearance Clear Urine Odor Normal Comment x2 Stool Size Large Stool Characteristics Liquid Bloody Voiding Methods Toilet Toilet Laboratory Results WBC 0.90 k/cumm (4.4-10.8) L* 03/07/19 06:15 RBC 2.06 m/cumm (4.00-5.20) L 03/07/19 06:15 Hgb 6.6 g/dL (12.0-15.5) L* 03/07/19 06:15 Hct 19.2 % (36.0-46.0) L* 03/07/19 06:15 MCV 93.2 fL (80-95) D 03/07/19 06:15 MCH 32.0 pg (27.0-33.0) 03/07/19 06:15 MCHC 34.4 g/dL (32.0-36.0) 03/07/19 06:15 RDW 17.6 % (11.7-14.6) H 03/07/19 06:15 Plt Count 18 x1000/uL (130-400) L* 03/07/19 06:15 MPV fL (8.0-11.0) 03/07/19 06:15 Immature Gran % See Differential 03/07/19 06:15 34.0 03/07/19 06:15 2.0 % 03/07/19 06:15 58.0 03/07/19 06:15 2.0 03/07/19 06:15 2.0 03/07/19 06:15 0.0 03/07/19 06:15 2.0 % 03/07/19 06:15 Absolute Neutrophils 0.32 k/cumm (1.2-6.7) L* 03/07/19 06:15 Absolute Lymphocytes 0.52 k/cumm (1.2-3.4) L 03/07/19 06:15 Absolute Monocytes 0.02 k/cumm (0.11-0.7) L 03/07/19 06:15 Absolute Eosinophils 0.02 k/cumm (0.0-0.7) 03/07/19 06:15 Absolute Basophils 0.00 k/cumm (0.0-0.2) 03/07/19 06:15 Manual differential 03/07/19 06:15 RBC Morphology See below 03/07/19 06:15 2+ 03/06/19 11:05 1+ 03/07/19 06:15 2+ 03/07/19 06:15 Sodium 142 mmol/L (136-145) 03/07/19 06:15 Potassium 3.6 mmol/L (3.5-5.1) 03/07/19 06:15 Chloride 108 mmol/L (98-107) H 03/07/19 06:15 Carbon Dioxide 23.5 mmol/L (21.0-32.0) 03/07/19 06:15 10.5 mmol/L (3-11) 03/07/19 06:15 BUN 19 mg/dL (7-18) H D 03/07/19 06:15 0.58 mg/dL (0.55-1.02) 03/07/19 06:15 >= 60.00 (mL/min/1.73m2) 03/07/19 06:15 Glucose 110 mg/dL (70-100) H 03/07/19 06:15 Calcium 7.6 mg/dL (8.5-10.1) L 03/07/19 06:15 Magnesium 1.7 mg/dL (1.8-2.4) L 03/07/19 06:15 0.8 mg/dL (0.2-1.0) 03/06/19 11:05 AST 31 U/L (15-37) 03/06/19 11:05 ALT 20 U/L (12-78) 03/06/19 11:05 78 U/L (46-116) 03/06/19 11:05 < 0.05 ng/mL (0.00-0.06) 03/06/19 11:05 6.1 g/dL (6.4-8.2) L 03/06/19 11:05 3.2 g/dL (3.4-5.0) L 03/06/19 11:05 Yellow (Yellow) 03/06/19 13:47 Clear (Clear) 03/06/19 13:47 5.0 (5-8) 03/06/19 13:47 Ur Specific [place] 1.010 (1.005-1.025) 03/06/19 13:47 Negative mg/dL (Negative) 03/06/19 13:47 15 mg/dL (Negative) H 03/06/19 13:47 Negative (Negative) 03/06/19 13:47 Negative (Negative) 03/06/19 13:47 Negative (Negative) 03/06/19 13:47 0.2 EU/dL (Up TO 0.2) 03/06/19 13:47 Ur Leukocyte Esterase Negative (Negative) 03/06/19 13:47 Negative mg/dL (Negative) 03/06/19 13:47 Patient ABO/Rh O Positive 03/06/19 11:40 Antibody Screen Negative 03/06/19 11:40 Crossmatch See Detail 03/06/19 11:40
--- NOTE | 2019-03-07 11:37 | NUR.NOTE ---
Pt receiving first unit (of 2) of PRBCs. Assessed lung sounds prior to transfusion, LS clear and diminished at that time. Reassessed LS and found fine crackles posteriorly mostly on the left lower lobe and right upper lobe. Pt took several deep breaths, crackles were still present. Charge nurse, Edelmira, notified. Edelmira asked us to reassess in 30 mins (1210).
[2019-03-07] MEDS: Normal Saline Flush 10 ML SYR IVP (16:05)
[2019-03-07] MEDS: Pantoprazole 40 MG VIAL IVP (16:05)
--- NOTE | 2019-03-07 16:26 | PHARADMIT ---
Admission Pharmacy Clinical Review symptomatic anemia, GI bleed, h/o mds s/p chemotherapy Code Status Full Code Current Weight 56.7 kg Renally Cleared and Narrow Therapeutic Index Meds Crcl ~56.89 mL/min current meds okay QTc Value / Action Taken QTc 428 BP Control, Fever BP 164/92 afebrile Electrolytes reviewed Cl 108 mag 1.7 DVT Prophylaxis none Opiate Usage / Scheduled Bowel Regimen Ordered no/prn Plt/SCr for Heparin / Enoxaparin plt 18 SCr 0.58 INR for Warfarin n/a H/H stable, WBC/Bands h/h 6.6/19.2 wbc 0.90 Antibiotic appropriateness levofloxacin on this acyclovir and flucon[place] [facility] [place] due to neutropenia Cultures and Sensitivities none Surgical ABX d/c within 24 hr n/a DM control / Insulin Dosing BG 110 Heart Failure (Check EF%) (VANESSA's, B-Block, Diuretics) none IV to PO Switch n/a Home Meds Reviewed -bupropion SR ordered once a day- nursing had primary care provider send updated med list, this is correct pts on SR not XL once a day -pts home med list on [facility] not yet updated to match meds from primary care office (metoprolol is missing, dexamethasone is a swish and spit) Home Meds Not Ordered amlodipine, losartan, metoprolol Comments 2 more units of PRBC transfused today, continue to watch h/h, plts and wbc BP meds on hold right now dexamethasone entered as PO vs. elixar for swish and spit [employer] aware
[2019-03-07 19:14] LABS: HCT 30.6 % (36.0-46.0); Mean Corp. HGB Concentration 35.9 g/dL (32.0-36.0); Mean Corpuscular Hemoglobin 31.5 pg (27.0-33.0); Mean Corpuscular Volume 87.7 fL (80-95); RBC 3.49 m/cumm (4.00-5.20); RBC Distribution Width 16.4 % (11.7-14.6)
[2019-03-07 19:36] LABS: White Blood Cell Count 0.87 k/cumm (4.4-10.8)
[2019-03-07 19:37] LABS: Platelet Count 16 x1000/uL (130-400)
[2019-03-07] MEDS: Acetaminophen 325 MG TAB PO (20:25)
[2019-03-07] MEDS: Montelukast 10 MG TAB PO (22:17)
[2019-03-08] VITALS (8 sets, daily range): BP systolic 131–164; BP diastolic 59–78; PULSE 61–82; RESP 17–18; TEMP 36.2–36.8; O2SAT 96–99
[2019-03-08 07:11] LABS: Absolute Eosinophil Count 0.01 k/cumm (0.0-0.7); Absolute Lymphocyte Count 0.74 k/cumm (1.2-3.4); Eosinophils % 1.1; HCT 27.7 % (36.0-46.0); HGB 9.7 g/dL (12.0-15.5); Lymphocytes % 78.7; Mean Corpuscular Hemoglobin 30.8 pg (27.0-33.0); Mean Corpuscular Volume 87.9 fL (80-95); Mean Platelet Volume 12.8 fL (8.0-11.0); Neutrophils % 20.2; RBC 3.15 m/cumm (4.00-5.20); RBC Distribution Width 16.6 % (11.7-14.6)
[2019-03-08 07:31] LABS: Anion Gap 9.9 mmol/L (3-11); BUN 14 mg/dL (7-18); CO2 24.1 mmol/L (21.0-32.0); CREATININE 0.65 mg/dL (0.55-1.02); Calcium 8.2 mg/dL (8.5-10.1); Chloride 108 mmol/L (98-107); Glucose 88 mg/dL (70-100); Potassium 3.4 mmol/L (3.5-5.1); Sodium 142 mmol/L (136-145)
[2019-03-08 07:39] LABS: Absolute Neutrophil Count 0.19 k/cumm (1.2-6.7); Platelet Count 23 x1000/uL (130-400); White Blood Cell Count 0.94 k/cumm (4.4-10.8)
[2019-03-08 07:40] LABS: Anisocytosis 1+; Diff Comment Agrees w/ Instrument
[2019-03-08] MEDS: Fluconazole 100 MG TAB 200 MG PO (09:18)
[2019-03-08] MEDS: Potassium Chloride 20 MEQ TABCR 40 MEQ PO ×2 (09:20→19:52)
[2019-03-08] MEDS: Acetaminophen 325 MG TAB PO (09:23)
[2019-03-08] MEDS: Acyclovir 400 MG TAB PO ×2 (09:25→19:53)
[2019-03-08] MEDS: levoFLOXacin 500 MG TAB PO (09:25)
[2019-03-08] MEDS: Multivitamin TAB 1 TAB PO (09:26)
[2019-03-08] MEDS: buPROPion-CR 100 MG TABCR PO (09:27)
[2019-03-08] MEDS: Dexamethasone 1 MG TAB 0.5 MG PO ×2 (09:28→19:53)
[2019-03-08] MEDS: amLODIPine 5 MG TAB PO (11:12)
[2019-03-08] MEDS: Sucralfate 1 GM TAB PO ×3 (11:12→21:34)
--- NOTE | 2019-03-08 14:18 | PGE_ITS ---
Date of Service Date of service: 03/08/19 Time of Service: 14:18 Assessment and Plan (1) Neutropenia: Current visit: Yes Status: Acute Her ANC is down to 0.19 today in the setting of myelodysplastic syndrome with chemotherapy initiation last week. Discussed case with Dr. Abby Carrera, [facility] hematology- states it will take time for her ANC to improve, no neupogen, should not be a barrier to discharge. Repeat labs tomorrow morning. Dr. Carrera is working on rescheduling her appointments with the hem/onc office at [facility]. (2) History of myelodysplastic syndrome: Current visit: No Status: Acute As above. Will follow up with Hematology as an outpatient. (3) Blood in stool: Current visit: Yes Status: Acute Resolved. Anemia improved and stable. (4) Anemia: Current visit: Yes Status: Chronic Has received 4 units of PRBCs during the course of her hospitalization. Hemoglobin and hematocrit stable at 9.7 and 27.7. Repeat H&H tomorrow morning. (5) COPD (chronic obstructive pulmonary disease): Current visit: Yes Status: Chronic Appears quiescent at this time. Continue combivent, flovent, singulair. (6) HTN (hypertension): Current visit: Yes Status: Chronic Her amlodipine and losartan have been on hold in the setting of hypovolemia and anemia. Her blood pressure has been increasing and hemogobin and hematocrit are stable. Resume Amlodipine and continue to monitor blood pressure. (7) Alcohol use: Current visit: Yes Status: Acute Endorses daily etoh intake. Not scoring on the CIWA protocol at present. Continue to monitor. (8) DVT prophylaxis: Current visit: Yes Status: Acute Hold chemical DVT ppx in the setting of anemia and thrombocytopenia. Ambulates frequently in her room. TEDs and SCDs for mechanical DVT ppx. Encourage oral hydration and ambulation. (9) Discharge planning issues: Current visit: Yes Status: Acute She is a FULL code. She is eager for discharge home. Possible for discharge in the next 24 hours. This case was discussed with Dr. Puente who is in agreement. Subjective Interval history since last seen: Rachel Key reports feeling well today. She is ambulating in her room. She is eager for discharge home, she has a follow up appointment scheduled with Dr. Carrera, Hematology at [facility] tomorrow. We discussed that her ANC is still very low at 0.19. I have a call in to Dr. Abby Carrera to discuss her case. Ms Key denies any dizziness or lightheadedness, she has an intermittent mild headache that is baseline for her. She denies shortness of breath, coughing or wheezing. She is no longer experiencing palpitations, she denies chest pain or pressure. She is eating and drinking with no abdominal pain, nausea, or vomiting. She denies dysuria, frequency, urgency or hematuria. She denies any blood in her stool. She had a small, formed bowel movement today. She denies edema. She is looking forward to hearing recommendations from Dr. Carrera. She reports feeling much better than when she arrived at the hospital. Exam Narrative Exam Narrative: General: elderly female, appears younger than stated age. Pleasant and cooperative, alert and oriented. In NAD. HEENT: normocephalic, atruamatic. Pupils equal and round, glasses on, EOMI. Mucous membranes moist. Neck: supple, no JVD. Cardiovascular: heart with regular rate and rhythm. Soft systolic murmur noted at LSB. Respiratory: respirations even and unlabored, lung sounds clear bilaterally. GI: normoactive bowel sounds x4 quadrants, abdomen soft, nondistended, nontender on palpation. Extremities: no clubbing, cyanosis or edema. Feet cool to touch. Pedal pulses plapable bilaterally. Objective Objective Clinical Data: Abnormal lab results 03/06/19 03/07/19 03/08/19 Range/Units 11:40 18:55 06:44 WBC 0.87 L* (4.4-10.8) k/cumm RBC 3.49 L (4.00-5.20) m/cumm Hgb 11.0 L D (12.0-15.5) g/dL Hct 30.6 L D (36.0-46.0) % RDW 16.4 H (11.7-14.6) % Plt Count 16 L* (130-400) x1000/uL MPV (8.0-11.0) fL Absolute Neutrophils (1.2-6.7) k/cumm Absolute Lymphocytes (1.2-3.4) k/cumm Absolute Monocytes (0.11-0.7) k/cumm Potassium 3.4 L (3.5-5.1) mmol/L Chloride 108 H (98-107) mmol/L Calcium 8.2 L (8.5-10.1) mg/dL Crossmatch See Detail 03/08/19 Range/Units 06:44 WBC 0.94 L* (4.4-10.8) k/cumm RBC 3.15 L (4.00-5.20) m/cumm Hgb 9.7 L (12.0-15.5) g/dL Hct 27.7 L (36.0-46.0) % RDW 16.6 H (11.7-14.6) % Plt Count 23 L* (130-400) x1000/uL MPV 12.8 H (8.0-11.0) fL Absolute Neutrophils 0.19 L* (1.2-6.7) k/cumm Absolute Lymphocytes 0.74 L (1.2-3.4) k/cumm Absolute Monocytes 0.00 L (0.11-0.7) k/cumm Potassium (3.5-5.1) mmol/L Chloride (98-107) mmol/L Calcium (8.5-10.1) mg/dL Crossmatch Vital Signs Temperature 36.6 C 03/08/19 07:45 Temperature Source Tympanic 03/08/19 07:45 Pulse 72 03/08/19 07:45 Pulse Rhythm Regular 03/08/19 07:25 Pulse 83 03/06/19 09:40 Respiratory Rate 17 03/08/19 07:45 Respiratory Effort Non-Labored 03/08/19 07:25 Respiratory Depth Normal 03/08/19 07:25 Respiratory Pattern Normal 03/08/19 07:25 Blood Pressure 164/78 H 03/08/19 07:45 Blood Pressure Mean 63 03/06/19 12:46 Blood Pressure Position Supine 03/06/19 09:01 Pulse Oximetry 99 03/08/19 07:45 Oxygen Delivery Method Room Air 03/08/19 07:45 Oxygen Flow Rate 0 03/08/19 07:45 Pain Level 0 03/08/19 10:23 Comment 03/06/19 20:05 Intake & Output 03/07/19 03/08/19 03/08/19 23:59 11:59 23:59 Intake Total 889 / 1658.6 Output Total 400 / 900 700 / 700 Balance 489 / 758.6 -690 / -690 Weight 56.6 kg Intake: IV Oral 240 / 240 Blood Product 579 / 879 Rbc Leuko Reduced Unit 579 / 579 [id number] Other 70 / 100 Rbc Leuko Reduced Unit 70 / 70 [id number] Output: Urine 400 / 900 700 / 700 Other: Urine Color Pale Dark Moriah Urine Appearance Clear Clear Urine Odor Normal Stool Occult Blood Positive Stool Size Small Stool Characteristics Soft Voiding Methods Toilet Toilet Laboratory Results WBC 0.94 k/cumm (4.4-10.8) L* 03/08/19 06:44 RBC 3.15 m/cumm (4.00-5.20) L 03/08/19 06:44 Hgb 9.7 g/dL (12.0-15.5) L 03/08/19 06:44 Hct 27.7 % (36.0-46.0) L 03/08/19 06:44 MCV 87.9 fL (80-95) 03/08/19 06:44 MCH 30.8 pg (27.0-33.0) 03/08/19 06:44 MCHC 35.0 g/dL (32.0-36.0) 03/08/19 06:44 RDW 16.6 % (11.7-14.6) H 03/08/19 06:44 Plt Count 23 x1000/uL (130-400) L* 03/08/19 06:44 MPV 12.8 fL (8.0-11.0) H 03/08/19 06:44 Immature Gran % 0.0 03/08/19 06:44 20.2 03/08/19 06:44 Cancelled 03/07/19 11:27 78.7 03/08/19 06:44 Atypical Lymphs % Cancelled 03/07/19 11:27 0.0 03/08/19 06:44 1.1 03/08/19 06:44 0.0 03/08/19 06:44 Cancelled 03/07/19 11:27 Cancelled 03/07/19 11:27 Cancelled 03/07/19 11:27 Absolute Neutrophils 0.19 k/cumm (1.2-6.7) L* 03/08/19 06:44 Absolute Lymphocytes 0.74 k/cumm (1.2-3.4) L 03/08/19 06:44 Absolute Monocytes 0.00 k/cumm (0.11-0.7) L 03/08/19 06:44 Absolute Eosinophils 0.01 k/cumm (0.0-0.7) 03/08/19 06:44 Absolute Basophils 0.00 k/cumm (0.0-0.2) 03/08/19 06:44 Nucleated RBCs Cancelled 03/07/19 11:27 Agrees w/ instrument 03/08/19 06:44 Cancelled 03/07/19 11:27 RBC Morphology See below 03/08/19 06:44 Cancelled 03/07/19 11:27 Cancelled 03/07/19 11:27 Cancelled 03/07/19 11:27 Cancelled 03/07/19 11:27 1+ 03/08/19 06:44 Cancelled 03/07/19 11:27 Cancelled 03/07/19 11:27 Cancelled 03/07/19 11:27 Cancelled 03/07/19 11:27 Cancelled 03/07/19 11:27 Cancelled 03/07/19 11:27 Cancelled 03/07/19 11:27 Cancelled 03/07/19 11:27 Cancelled 03/07/19 11:27 Acanthocytes (Spur) Cancelled 03/07/19 11:27 Cancelled 03/07/19 11:27 Sodium 142 mmol/L (136-145) 03/08/19 06:44 Potassium 3.4 mmol/L (3.5-5.1) L 03/08/19 06:44 Chloride 108 mmol/L (98-107) H 03/08/19 06:44 Carbon Dioxide 24.1 mmol/L (21.0-32.0) 03/08/19 06:44 9.9 mmol/L (3-11) 03/08/19 06:44 BUN 14 mg/dL (7-18) 03/08/19 06:44 0.65 mg/dL (0.55-1.02) 03/08/19 06:44 >= 60.00 (mL/min/1.73m2) 03/08/19 06:44 Glucose 88 mg/dL (70-100) 03/08/19 06:44 Calcium 8.2 mg/dL (8.5-10.1) L 03/08/19 06:44 Magnesium 2.0 mg/dL (1.8-2.4) 03/08/19 06:44 0.8 mg/dL (0.2-1.0) 03/06/19 11:05 AST 31 U/L (15-37) 03/06/19 11:05 ALT 20 U/L (12-78) 03/06/19 11:05 78 U/L (46-116) 03/06/19 11:05 < 0.05 ng/mL (0.00-0.06) 03/06/19 11:05 6.1 g/dL (6.4-8.2) L 03/06/19 11:05 3.2 g/dL (3.4-5.0) L 03/06/19 11:05 Yellow (Yellow) 03/06/19 13:47 Clear (Clear) 03/06/19 13:47 5.0 (5-8) 03/06/19 13:47 Ur Specific [place] 1.010 (1.005-1.025) 03/06/19 13:47 Negative mg/dL (Negative) 03/06/19 13:47 15 mg/dL (Negative) H 03/06/19 13:47 Negative (Negative) 03/06/19 13:47 Negative (Negative) 03/06/19 13:47 Negative (Negative) 03/06/19 13:47 0.2 EU/dL (Up TO 0.2) 03/06/19 13:47 Ur Leukocyte Esterase Negative (Negative) 03/06/19 13:47 Negative mg/dL (Negative) 03/06/19 13:47 Patient ABO/Rh O Positive 03/06/19 11:40 Antibody Screen Negative 03/06/19 11:40 Crossmatch See Detail 03/06/19 11:40
--- NOTE | 2019-03-08 15:57 | PDOC.CMPRO ---
- If Service Date Differs Date of service: 03/08/19 Time of Service: 15:57 Care Management Progress Note S/O:Rachel was sitting up in the chair when CM came to visit.She was pleasant and cooperative and readily engaged in conversation. Rachel stated that she is disappointed that she cannot be discharged today but understands why. She states she is feeling much better. A: Rachel is a 73 year old female admitted to [facility] on 03/06/19 with GI bleed and anemia. P:Rachel will be discharged home with no services when ready. She will follow up with her PCP and oncologist. CM will continue to provide support to Rachel, her family and identified discharge needs or concerns.
[2019-03-08] MEDS: Pantoprazole 40 MG VIAL IVP (16:13)
[2019-03-08] MEDS: Normal Saline Flush 10 ML SYR IVP (16:13)
[2019-03-08] MEDS: Montelukast 10 MG TAB PO (21:34)
[2019-03-09 00:32] VITALS: BP 148/67; PULSE 82; RESP 18; TEMP 36.5; O2SAT 99
[2019-03-09 03:51] VITALS: BP 130/75; PULSE 66; RESP 18; TEMP 36.8; O2SAT 98
[2019-03-09 07:19] LABS: Absolute Lymphocyte Count 0.77 k/cumm (1.2-3.4); Absolute Monocyte Count 0.01 k/cumm (0.11-0.7); HCT 28.3 % (36.0-46.0); HGB 9.6 g/dL (12.0-15.5); Lymphocytes % 83.7; Mean Corp. HGB Concentration 33.9 g/dL (32.0-36.0); Mean Corpuscular Hemoglobin 30.9 pg (27.0-33.0); Mean Platelet Volume 11.5 fL (8.0-11.0); Monocytes % 1.1; Neutrophils % 15.2; RBC 3.11 m/cumm (4.00-5.20); RBC Distribution Width 16.9 % (11.7-14.6)
[2019-03-09 07:33] LABS: Anion Gap 8.2 mmol/L (3-11); BUN 14 mg/dL (7-18); CO2 27.8 mmol/L (21.0-32.0); CREATININE 0.69 mg/dL (0.55-1.02); Calcium 8.7 mg/dL (8.5-10.1); Chloride 106 mmol/L (98-107); Glucose 80 mg/dL (70-100); Magnesium 2.1 mg/dL (1.8-2.4); Sodium 142 mmol/L (136-145)
[2019-03-09 08:33] LABS: Absolute Neutrophil Count 0.14 k/cumm (1.2-6.7); White Blood Cell Count 0.92 k/cumm (4.4-10.8)
[2019-03-09 08:36] LABS: Anisocytosis 1+; Diff Comment Agrees w/ Instrument; Platelet Count 30 x1000/uL (130-400); Polychromasia Present
[2019-03-09] MEDS: amLODIPine 5 MG TAB PO (08:50)
[2019-03-09] MEDS: Dexamethasone 1 MG TAB 0.5 MG PO (08:50)
[2019-03-09] MEDS: Fluconazole 100 MG TAB 200 MG PO (08:50)
[2019-03-09] MEDS: Sucralfate 1 GM TAB PO (08:50)
[2019-03-09] MEDS: Acyclovir 400 MG TAB PO (08:50)
[2019-03-09] MEDS: Multivitamin TAB 1 TAB PO (08:50)
[2019-03-09] MEDS: buPROPion-CR 100 MG TABCR PO (08:50)
[2019-03-09] MEDS: Ketoconazole 2% CREAM 15 GM TUBE TP (08:51)
[2019-03-09] MEDS: Triamcinolone 0.1% CR 15 GM TUBE TP (08:51)
--- NOTE | 2019-03-09 10:36 | DSE_ITS ---
Date of service: 03/09/19 Time of Service: 10:36 DS: Diagnosis Discharge Diagnosis (1) Neutropenia: Status: Acute (2) History of myelodysplastic syndrome: Status: Acute (3) Blood in stool: Status: Acute (4) Anemia: Status: Chronic (5) COPD (chronic obstructive pulmonary disease): Status: Chronic (6) HTN (hypertension): Status: Chronic (7) Alcohol use: Status: Acute Discharge Plan Disposition Patient Disposition: HOME Condition: Stable Discharge Details Chief Complaint: Palpitatns Clinical Impression: Symptomatic anemia, History of myelodysplastic syndrome, GI bleed, Status post chemotherapy Reason For Visit: SYMPTOMATIC ANEMIA,GI BLEED,H/O MDS S/P CHEMOTHERA Admit Date/Time: 03/08/19 15:40 Admit Provider: Andre Puente Attending Provider: Andre Puente Primary Care Provider: Marbella Adames ED Provider: Anita Coles Hospital Course Hospital Course: Rachel Key is a pleasant 73 year old old female with past medical history significant for Myleodysplastic syndrome, COPD (not requiring oxygen), HTN, Barretts esophagus and alcohol use who presented to the [facility] ED on 03/06/19 with reports of a 2-day history of generalized weakness, worsening shortness of breath, and palpitations. She had received her first chemotherapy treatment for myelodysplastic syndrome approximately 2 weeks prior to her arrival. In the ED, she had labs drawn which showed a hemoglobin of 5.1, her white blood cell count 1.11, platelet count of 31, her ANC was 0.49, troponin negative. She had a negative chest x-ray. Her case was discussed with hematology at [facility] who agreed with blood transfusion of 2 units of packed red blood cells. They also recommended that she be treated prophylactically with 500 mg Levaquin IV once daily, 200 mg fluconazole IV once daily, and acyclovir 400 mg IV twice daily in case of developing neutropenia considering patient's downtrending pancytopenia in the setting of myelodysplastic syndrome. [facility] for further observation and management. She went on to have a total of 4 units of packed red blood cells. She remained afebrile. By the day of discharge her white blood cell count appears stable at 0.92, her hemoglobin is stable at 9.6 with a hematocrit of 28.3. Her platelet count is stable at 30 and her ANC is 0.14. The patient requested that we discuss her case with her calender roll operator, Dr. Abby Carrera at [facility]. Dr. Carrera recommended continuing the antibiotic, antifungal and antiviral until her ANC was greater than 500. She recommended that her low ANC not to be a barrier to her discharge. She did not recommend a bone marrow stimulant such as Neupogen. She expects that her blood counts will remain low for some time. The patient was scheduled to see Dr. Carrera on the day of discharge. Dr. Carrera rescheduled her appointment. On the day of discharge, she denies any shortness of breath, coughing, wheezing, no chest pain/pressure or palpitations. She is eating and drinking and tolerating her diet. She is eager for discharge home. Her anemia is likely in the setting of myelodysplastic syndrome with chemotherapy, however, she was found to have heme-positive stools. She was initiated on PPI therapy as well as carafate for GI protection. Her blood pressure medications were initially held in the setting of hypovolemia, however as her blood pressure increased, she was restarted on amlodipine. She will resume her losartan at the direction of her PCP. She has follow up scheduled for Thursday03/14/19. She will have labs drawn on 03/11/19, in 2 days to follow up on her blood counts. She will follow up with [place]. Carrera, [place] [facility] [place]. She has been counseled on infection control measures. Home Meds and New Rx's Prescriptions: New fluconazole 100 mg Tablet 200 mg PO DAILY Qty: 7 RF: 0 sucralfate 1 gram Tablet 1 g PO AC & HS Qty: 28 RF: 0 acyclovir 400 mg Tablet 400 mg PO BID Qty: 14 RF: 0 levofloxacin [Levaquin] 500 mg Tablet 500 mg PO DAILY@1000 Qty: 7 RF: 0 omeprazole 40 mg capsule,delayed release(DR/EC) 40 mg PO DAILY Qty: 14 RF: 0 Continued triamcinolone acetonide 0.5 % Ointment 1 applic TOPICAL DAILY PRNRF: 0 amlodipine [Norvasc] 5 mg Tablet 5 mg PO DAILY RF: 0 bupropion HCl 100 mg Tablet Sustained-Release 12 Hr 100 mg PO DAILY RF: 0 dexamethasone 0.5 mg/5 mL Solution 0.5 mg PO BID RF: 0 ranitidine HCl [Zantac] 150 mg Tablet 150 mg PO BID RF: 0 montelukast [Singulair] 10 mg Tablet 10 mg PO QHS RF: 0 Flovent HFA 220 mcg/actuation Hfa Aerosol Inhaler 2 puff INHALATION BID RF: 0 ketoconazole 2 % Cream 1 applic TOPICAL DAILY RF: 0 losartan [Cozaar] 100 mg Tablet 100 mg PO DAILY RF: 0 Combivent Respimat 20-100 mcg/actuation Mist 1 puff INHALATION Q6H PRNRF: 0 Discharge Instructions Instructions: Myelodysplastic Syndromes (DC), Neutropenia (DC), Neutropenic Precautions (GEN) Additional Instructions: Please be sure visitors wash hands and wear masks. You need to take antibiotics, antifungal and antiviral medications until your ANC is greater than 500. You will have labs drawn on Thursday to reassess your blood counts. Follow up with your PCP as scheduled. [place] [facility] [place]. Stand Alone Forms: Nursing Discharge Form Referrals: Abby Carrera [ NON-[facility] STAFF PHYSICIAN] - 03/21/19 12:15 pm Marbella Adames [Primary Care Provider] - 03/14/19 2:45 pm Activity:: Activity as Tolerated Equipment/Supplies:: No Equipment Needed Diet:: As Tolerated Discharge Orders Discharge Orders: Discharge Order (Routine); Ordered 03/09/19 Ordered By: Carmen Young Other Ambulatory Orders: Complete Blood Count w/Diff (Routine) Timeframe: 2 Days Location: None Selected Ordered By: Carmen Young Comprehensive Metabolic Panel (Routine) Timeframe: 2 Days Location: None Selected Ordered By: Carmen Young Discharge Data Discharge Date/Time-TO BE ENTERED AT DEPARTURE: 03/09/19 12:56 Exam Narrative Exam Narrative: General: elderly female, sitting up in chair, appears younger than stated age. Pleasant and cooperative, alert and oriented. In NAD. HEENT: normocephalic, atruamatic. Pupils equal and round, glasses on, EOMI. Muc ous membranes moist. Neck: supple, no JVD. Cardiovascular: heart with regular rate and rhythm. Soft systolic murmur noted at LSB. Respiratory: respirations even and unlabored, lung sounds clear bilaterally. GI: normoactive bowel sounds x4 quadrants, abdomen soft, nondistended, nontender on palpation. Extremities: no clubbing, cyanosis or edema. Feet cool to touch. Pedal pulses plapable bilaterally. DS: Data Vitals/I&O Vitals and I&O: Vital Signs Temperature 36.8 C 03/09/19 03:51 Temperature Source Tympanic 03/09/19 03:51 Pulse 66 03/09/19 03:51 Pulse Rhythm Regular 03/09/19 09:01 Pulse 83 03/06/19 09:40 Respiratory Rate 18 03/09/19 03:51 Respiratory Effort Non-Labored 03/09/19 09:01 Respiratory Depth Normal 03/09/19 09:01 Respiratory Pattern Normal 03/09/19 09:01 Blood Pressure 130/75 03/09/19 03:51 Blood Pressure Mean 63 03/06/19 12:46 Blood Pressure Position Supine 03/06/19 09:01 Pulse Oximetry 98 03/09/19 03:51 Oxygen Delivery Method Room Air 03/09/19 03:51 Oxygen Flow Rate 0 03/09/19 03:51 Pain Level 0 03/09/19 00:32 Comment 03/06/19 20:05 Intake & Output 03/08/19 03/08/19 03/09/19 11:59 23:59 11:59 Intake Total 820 / 820 Output Total 700 / 700 200 / 200 Balance -690 / -680 10 / -680 620 / 620 Weight 56.6 kg 56.6 kg Intake: IV Oral 810 / 810 Output: Urine 700 / 700 Stool 200 / 200 Other: Urine Color Dark Moriah Urine Appearance Clear Clear Urine Odor Normal Comment voiding independently Stool Occult Blood Positive Positive Stool Size Small Moderate Stool Characteristics Soft Soft Liquid Black Voiding Methods Toilet Toilet Completed studies during hospitalization [Text1]: 03/06/19: PA AND LATERAL CHEST: Comparison is made with . A port is again noted. The heart size is normal. There is calcification at the aorta. The lungs appear clear. IMPRESSION: No acute abnormality. Labs on day of discharge: Labs from last 24 hours 03/09/19 03/09/19 03/08/19 06:38 06:38 06:44 WBC 0.92 L* 0.94 L* RBC 3.11 L 3.15 L Hgb 9.6 L 9.7 L Hct 28.3 L 27.7 L MCV 91.0 D 87.9 MCH 30.9 30.8 MCHC 33.9 35.0 RDW 16.9 H 16.6 H Plt Count 30 L 23 L* MPV 11.5 H 12.8 H Immature Gran % 0.0 0.0 Neutrophils % 15.2 20.2 Band Neutrophils % Lymphocytes % 83.7 78.7 Monocytes % 1.1 0.0 Eosinophils % 0.0 1.1 Basophils % 0.0 0.0 Metamyelocytes % Absolute Neutrophils 0.14 L* 0.19 L* Absolute Lymphocytes 0.77 L 0.74 L Absolute Monocytes 0.01 L 0.00 L Absolute Eosinophils 0.00 0.01 Absolute Basophils 0.00 0.00 Differential Comment Agrees w/ instrument Agrees w/ instrument RBC Morphology See below See below Polychromasia Present Poikilocytosis Anisocytosis 1+ 1+ Sodium 142 Potassium 4.0 Chloride 106 Carbon Dioxide 27.8 Anion Gap 8.2 BUN 14 Creatinine 0.69 Estimated GFR/1.73 m2 >= 60.00 Glucose 80 Calcium 8.7 Magnesium 2.1 03/08/19 03/07/19 03/07/19 06:44 06:15 06:15 WBC 0.90 L* RBC 2.06 L Hgb 6.6 L* Hct 19.2 L* MCV 93.2 D MCH 32.0 MCHC 34.4 RDW 17.6 H Plt Count 18 L* MPV Immature Gran % Neutrophils % 34.0 Band Neutrophils % 2.0 Lymphocytes % 58.0 Monocytes % 2.0 Eosinophils % 2.0 Basophils % 0.0 Metamyelocytes % 2.0 Absolute Neutrophils 0.32 L* Absolute Lymphocytes 0.52 L Absolute Monocytes 0.02 L Absolute Eosinophils 0.02 Absolute Basophils 0.00 Differential Comment Manual differential RBC Morphology See below Polychromasia Poikilocytosis 1+ Anisocytosis 2+ Sodium 142 142 Potassium 3.4 L 3.6 Chloride 108 H 108 H Carbon Dioxide 24.1 23.5 Anion Gap 9.9 10.5 BUN 14 19 H D Creatinine 0.65 0.58 Estimated GFR/1.73 m2 >= 60.00 >= 60.00 Glucose 88 110 H Calcium 8.2 L 7.6 L Magnesium 2.0 1.7 L PFSH Medical History Alcohol use (Acute) Anemia (Chronic) COPD (chronic obstructive pulmonary disease) (Chronic) COPD (chronic obstructive pulmonary disease) (Chronic) Essential hypertension (Acute) History of anxiety (Acute) History of Connell's esophagus (Acute) History of depression (Acute) History of ETOH abuse (Acute) History of myelodysplastic syndrome (Acute) HTN (hypertension) (Chronic) Hx of allergic rhinitis (Acute) Hx of cardiac murmur (Acute) Hx of cyst of breast (Acute) Hx of iron deficiency anemia (Acute) Hx of lichen planus (Acute) Osteoporosis (Chronic) Surgical History History of bone marrow biopsy (Acute) History of cholecystectomy (Chronic) History of colonoscopy (Chronic) History of esophagogastroduodenoscopy (EGD) (Chronic) Family History Brother Heart disease Diabetes Mother Heart disease Emphysema lung Sister Diabetes Father Myocardial infarction (lateral wall) Social History Smoking/Tobacco Use Status: Never Alcohol Intake: current Alcohol Intake frequency: 3 or more drinks per day Alcohol type: wine and hard liquor Drug use: Never Substance use type: does not use Details: alcohol: t-1, couple drinks Household members: spouse Number of Children: 1 Do you feel safe at home: Yes Do you feel safe in your relationship?: Yes
[2019-03-09] MEDS: levoFLOXacin 500 MG TAB PO (10:59)
[2019-03-09 11:35] VITALS: BP 153/75; PULSE 73; RESP 19; TEMP 36.8; O2SAT 99
--- NOTE | 2019-03-09 12:22 | PDOC.CMDIS ---
- If Service Date Differs Date of service: 03/09/19 Time of Service: 12:22 LACE Index Scoring Tool - Questions: Length of Stay (in days): 1 Acuity (Admit via E.D.?): Yes Comorbidities: Chronic Pulmonary Disease, Any Tumor E.D. Visits: 1 - Answers: Total Score: 10 Risk of Readmission: High Risk Care Management Discharge Reason for Hospitalization: History of myelodysplastic syndrome Discharge Plan: Rachel will be discharged home with no additional services. She will follow up with her oncologist and PCP. She will resume chemotherapy once medically and hemotologically stable. Rachel will be transported by her via private vehicle Patient/Family Education Needs: Discharge plan, limitations, follow up plan and Ask me Three.
== END 2019-03-09 12:56 | disposition home or self-care (01) | DRG 810 ==
LOC: ER 13:10 → MS 14:02
PROVIDERS: Internal Medicine; Admitting Provider Internal Medicine; Emergency Provider Physician Assistant; PCP Internal Medicine; Visit Provider Internal Medicine
DX: D70.9 Neutropenia, unspecified (principal); R50.81 Fever presenting with conditions classified elsewhere; D46.9 Myelodysplastic syndrome, unspecified; D63.0 Anemia in neoplastic disease; Z79.899 Other long term (current) drug therapy; E86.1 Hypovolemia; J44.9 Chronic obstructive pulmonary disease, unspecified; I10 Essential (primary) hypertension; F10.10 Alcohol abuse, uncomplicated; R19.5 Other fecal abnormalities
CPT/HCPCS: 36415; 36430; 80048; 80053; 85027; 86850; 86900; 86901; 86920; 86945; 99223; 99232; 99233; 99239; 71046; 81003; 83735; 84484; 85014; 85018; 85025; 99220; 99226; G0378; J8540; P9016

== ENCOUNTER 2019-03-16 18:00 | Emergency (ER) | payer MEDICARE, OTHER, SELFPAY ==
[2019-03-16] VITALS (24 sets, daily range): BP systolic 99–139; BP diastolic 34–112; PULSE 77–98; RESP 18; TEMP 37.7–38.8; O2SAT 90–98
--- NOTE | 2019-03-16 18:22 | W.ED.GENAD ---
Discharge Plan Disposition Patient Disposition: AGAINST MEDICAL ADVICE Condition: Stable Discharge Details Chief Complaint: GenMedical Clinical Impression: Neutropenic fever, Hypokalemia Primary Care Provider: Marbella Adames ED Provider: Jose Merritt Home Meds and New Rx's Prescriptions: New levofloxacin 500 mg tablet 500 mg PO DAILY 7 Days Qty: 7 RF: 0 No Action fluconazole 100 mg Tablet 200 mg PO DAILY Qty: 7 RF: 0 sucralfate 1 gram Tablet 1 g PO AC & HS Qty: 28 RF: 0 acyclovir 400 mg Tablet 400 mg PO BID Qty: 14 RF: 0 omeprazole 40 mg capsule,delayed release(DR/EC) 40 mg PO DAILY Qty: 14 RF: 0 triamcinolone acetonide 0.5 % Ointment 1 applic TOPICAL DAILY PRNRF: 0 amlodipine [Norvasc] 5 mg Tablet 5 mg PO DAILY RF: 0 bupropion HCl 100 mg Tablet Sustained-Release 12 Hr 100 mg PO DAILY RF: 0 dexamethasone 0.5 mg/5 mL Solution 0.5 mg PO BID RF: 0 ranitidine HCl [Zantac] 150 mg Tablet 150 mg PO BID RF: 0 montelukast [Singulair] 10 mg Tablet 10 mg PO QHS RF: 0 Flovent HFA 220 mcg/actuation Hfa Aerosol Inhaler 2 puff INHALATION BID RF: 0 ketoconazole 2 % Cream 1 applic TOPICAL DAILY PRNRF: 0 losartan [Cozaar] 100 mg Tablet 100 mg PO DAILY RF: 0 Combivent Respimat 20-100 mcg/actuation Mist 1 puff INHALATION Q6H PRNRF: 0 Discharge Instructions Instructions: Hypokalemia (ED), Hypomagnesemia (ED) Additional Instructions: your blood counts are still low and given your fever we wanted to admit you but we did not have beds available here. You chose to go home rather than be transferred follow up with your oncologist within 1-2 weeks increase your dietary intake of magnesium and potassium and have this rechecked in 1-2 weeks if you feel more ill, difficulty breathing or persistent vomit return to the emergency department for reevaluation Medical Decision Making 73 yo female with hx of myelodyspalstic syndrome undergoing chemotherapy, htn, copd, who comes in with fever to 103 at home today. She has had some midl general weakness and yesterday had n/v otherwise no symptoms. She has had a rash for a day on her chest that is not itching or painful, has numerous small erythematous papules on her chest that are non tender and do not appear to be infectious in etiology. She has no abdominal tenderness, clear lungs and is in no distress on exam. The hem/onc fellow cement mason apprentice that spoke with her told her to come here as she will likely have continued neutropenia and given her fever will need IV abx. Will order lab work and cultures along and monitor. No cough so doubt pna. pt's labs show continued neutropenia and has fever here. We unfortunatley have no beds here tonight to admit her to. I told the pt I was going to call [facility] about transfer and other hospitals if needed to find a bed. The pt declined this and is choosing to go home. She understands the risks of leaving including and permanent disability and is willing to accept these risks. She understands that she can return at any time if she changes her mind and to return if worsening. She is choosing to leave against medical advise. I will start her on oral abx to hopefully cover a source and was d/c'd on levaquin last week so will continue this. She had all her questions answered along with her 's questions Differential Diagnosis neutropenic fever, pna, uti Lab Data Lab results reviewed: Yes I reviewed the patient's lab results. HPI General Mode of arrival: ambulatory. Date/Time Provider Initiated Documentation: 03/16/19 18:14. Limitations to Documentation: no limitations. Information obtained by: patient. History of Present Illness 73 year old F presents to the emergency department with the chief complaint of fever, described as moderate, and it has been constant. No relieving factors improve symptom(s), No exacerbating factors reported . Patient did receive the following treatments prior to arrival, none Related Data Home Medications Medication Instructions Recorded Confirmed Combivent Respimat 1 puff INHALATION Q6H PRN 03/01/19 03/06/19 Flovent HFA 2 puff INHALATION BID 03/01/19 03/06/19 amlodipine [Norvasc] 5 mg PO DAILY 03/01/19 03/16/19 bupropion HCl 100 mg PO DAILY 03/01/19 03/16/19 dexamethasone 0.5 mg PO BID 03/01/19 03/16/19 ketoconazole 1 applic TOPICAL DAILY PRN 03/01/19 03/16/19 losartan [Cozaar] 100 mg PO DAILY 03/01/19 03/16/19 montelukast [Singulair] 10 mg PO QHS 03/01/19 03/16/19 ranitidine HCl [Zantac] 150 mg PO BID 03/01/19 03/16/19 triamcinolone acetonide 1 applic TOPICAL DAILY PRN 03/01/19 03/16/19 acyclovir 400 mg PO BID #14 tab 03/09/19 fluconazole 200 mg PO DAILY #7 tab 03/09/19 03/16/19 omeprazole 40 mg PO DAILY #14 cap 03/09/19 03/16/19 sucralfate 1 g PO AC & HS #28 tab 03/09/19 03/16/19 levofloxacin 500 mg PO DAILY 7 Days #7 tab 03/16/19 Previous Rx's Medication Instructions Recorded acyclovir 400 mg PO BID #14 tab 03/09/19 fluconazole 200 mg PO DAILY #7 tab 03/09/19 omeprazole 40 mg PO DAILY #14 cap 03/09/19 sucralfate 1 g PO AC & HS #28 tab 03/09/19 levofloxacin 500 mg PO DAILY 7 Days #7 tab 03/16/19 Allergies Allergy/AdvReac Type Severity Reaction Status Date / Time Influenza Virus Vaccines Allergy Intermediate Swelling/Ed Verified 03/16/19 18:15 anabell Penicillins Allergy Intermediate Skin Rash Verified 03/16/19 18:15 pneumococcal vaccine Allergy Intermediate Swelling/Ed Verified 03/16/19 18:15 [From Pneumovax 23] anabell Sulfa (Sulfonamide Allergy Intermediate Hives Verified 03/16/19 18:15 Antibiotics) General Stated Complaint: GenMedical ARGELIA: 3 Review of Systems Review of Systems All systems reviewed & are unremarkable except as noted in HPI and below Cardiovascular Denies chest pain and Denies dyspnea Respiratory Denies cough and Denies dyspnea Gastrointestinal Denies abdominal pain Musculoskeletal Denies joint swelling PFSH Social History Smoking/Tobacco Use Status: Former Tobacco Use Quit Date: 08/03/87 Alcohol Intake: current Alcohol Intake frequency: 0-2 drinks per day Alcohol type: wine and hard liquor Drug use: Never Substance use type: does not use Household members: spouse Number of Children: 1 Do you feel safe at home: Yes Do you feel safe in your relationship?: Yes Exam Const General: no acute distress Orientation: alert HENMT Head: normal to inspection Ears: external ears normal General nose exam: external nose normal Mouth: moist mucous membranes Eyes General: appearance normal, both eyes and all related structures Neck Neck: normal visual inspection Resp Effort & Inspection: normal respiratory effort and able to speak in complete sentences Cardio Rate: regular rate Skin General skin exam: elasticity normal Neuro General: alert and oriented x3 Extrem General: normal to inspection Psych Mental Status: mental status grossly normal Course Vital Signs Temperature 37.7 C H 03/16/19 18:09 Pulse 90 03/16/19 18:09 Respiratory Rate 18 03/16/19 18:09 Pulse Oximetry 96 03/16/19 18:09 Temperature 37.7 C H 03/16/19 18:09 Temperature Source Skin 03/16/19 18:09 Pulse 90 03/16/19 18:09 Respiratory Rate 18 03/16/19 18:09 Respiratory Effort Non-Labored 03/16/19 18:12 Blood Pressure Position Sitting 03/16/19 18:09 Pulse Oximetry 96 03/16/19 18:09 Oxygen Delivery Method Room Air 03/16/19 18:09 Oxygen Flow Rate 0 03/16/19 18:09 Pain Level 3 03/16/19 18:09 Lab/Test Results Lab/Test Results: 03/16/19 18:15 Blood Blood Culture - Pending 03/16/19 18:15 Blood Blood Culture - Pending
[2019-03-16 18:59] LABS: BE (Venous) 2.9 mmol/L (-3-3); HCO3 (Venous) 27 mmol/L (22-28); O2 Sat (Venous) 80 % (70-80); TCO2 (Venous) 25 mmol/L (22-29); pCO2 (Venous) 37 mm/Hg (34-47); pH (Venous) 7.47 (7.32-7.43); pO2 (Venous) 42 mm/Hg (28-44)
[2019-03-16 19:00] LABS: Abs Immature Grans 0.01 k/cumm (0.0-0.09); Absolute Lymphocyte Count 0.14 k/cumm (1.2-3.4); HCT 24.6 % (36.0-46.0); Immature Grans % 5.3; Lymphocytes % 73.7; Mean Corp. HGB Concentration 32.5 g/dL (32.0-36.0); Mean Corpuscular Hemoglobin 30.5 pg (27.0-33.0); Mean Corpuscular Volume 93.9 fL (80-95); Mean Platelet Volume 9.5 fL (8.0-11.0); Platelet Count 580 x1000/uL (130-400); RBC 2.62 m/cumm (4.00-5.20); RBC Distribution Width 17.7 % (11.7-14.6)
[2019-03-16] MEDS: Normal Saline 1,000 ML 1000 ML IV (19:03)
[2019-03-16 19:09] LABS: White Blood Cell Count 0.19 k/cumm (4.4-10.8)
[2019-03-16 19:18] LABS: ALT 23 U/L (12-78); AST 14 U/L (15-37); Albumin 2.7 g/dL (3.4-5.0); Alkaline Phosphatase 69 U/L (46-116); Anion Gap 9.2 mmol/L (3-11); BUN 16 mg/dL (7-18); Bilirubin, Total 0.7 mg/dL (0.2-1.0); CO2 25.8 mmol/L (21.0-32.0); CREATININE 0.83 mg/dL (0.55-1.02); Calcium 7.9 mg/dL (8.5-10.1); Chloride 99 mmol/L (98-107); Glucose 109 mg/dL (70-100); Magnesium 1.4 mg/dL (1.8-2.4); Sodium 134 mmol/L (136-145); Total Protein 6.1 g/dL (6.4-8.2)
[2019-03-16 19:21] LABS: Potassium 2.7 mmol/L (3.5-5.1)
[2019-03-16 19:29] LABS: RBC Morphology Normal
[2019-03-16] MEDS: Potassium Chloride 20 MEQ TABCR 40 MEQ PO (19:34)
[2019-03-16] MEDS: Ondansetron O.D.T. 4 MG TABEF (19:35)
[2019-03-16] MEDS: Acetaminophen 500 MG TAB 1000 MG PO (19:35)
[2019-03-16] MEDS: levoFLOXacin 500 MG TAB PO (19:35)
[2019-03-16 19:39] LABS: Diff Comment Diff Reviewed
[2019-03-16 19:40] LABS: Absolute Neutrophil Count 0.04 k/cumm (1.2-6.7)
== END 2019-03-16 20:11 | disposition left against medical advice (07) ==
PROVIDERS: Emergency Provider Emergency Medicine; PCP Internal Medicine
DX: D70.9 Neutropenia, unspecified (principal); E87.6 Hypokalemia; E83.42 Hypomagnesemia; D46.9 Myelodysplastic syndrome, unspecified; Z79.899 Other long term (current) drug therapy; R21 Rash and other nonspecific skin eruption; J44.9 Chronic obstructive pulmonary disease, unspecified; I10 Essential (primary) hypertension; Z53.29 Procedure and treatment not carried out because of patient's decision for other reasons
CPT/HCPCS: 36591; 80053; 82805; 86850; 86900; 86901; 87040; 96360; 99284; 83605; 83735; 85025

== ENCOUNTER 2019-03-28 08:00 | Outpatient (RCR) | payer MEDICARE, OTHER, SELFPAY ==
[2019-03-02 09:39] LABS: Abs Immature Grans 0.02 k/cumm (0.0-0.09); Absolute Eosinophil Count 0.01 k/cumm (0.0-0.7); Absolute Lymphocyte Count 0.59 k/cumm (1.2-3.4); Absolute Neutrophil Count 1.23 k/cumm (1.2-6.7); Eosinophils % 0.5; HCT 21.4 % (36.0-46.0); Immature Grans % 1.1; Lymphocytes % 31.9; Mean Corp. HGB Concentration 31.8 g/dL (32.0-36.0); Mean Corpuscular Hemoglobin 33.8 pg (27.0-33.0); Mean Corpuscular Volume 106.5 fL (80-95); Mean Platelet Volume 10.9 fL (8.0-11.0); Neutrophils % 66.5; RBC 2.01 m/cumm (4.00-5.20)
[2019-03-02 09:58] LABS: HGB 6.8 g/dL (12.0-15.5); White Blood Cell Count 1.85 k/cumm (4.4-10.8)
[2019-03-02 10:40] LABS: Anisocytosis 3+; Diff Comment Diff Reviewed; Hypochromasia 1+; Ovalocytes 2+; Platelet Count 98 x1000/uL (130-400); Poikilocytes 1+
[2019-03-03 11:03] VITALS: BP 143/77; PULSE 81; RESP 18; TEMP 36.4; O2SAT 99
[2019-03-03 11:24] VITALS: BP 122/71; PULSE 75; RESP 19; TEMP 36.4; O2SAT 98
[2019-03-03 11:39] VITALS: BP 147/65; PULSE 71; RESP 18; TEMP 36.4; O2SAT 99
[2019-03-03] MEDS: Normal Saline Flush 10 ML SYR IVP (12:07)
[2019-03-03 12:09] VITALS: BP 130/77; PULSE 79; RESP 18; TEMP 36.4; O2SAT 99
[2019-03-03 13:09] VITALS: BP 149/68; PULSE 76; RESP 18; TEMP 36; O2SAT 98
[2019-03-03] MEDS: Heparin 500 UNITS/5 ML SYRINGE IV (13:15)
[2019-03-11] MEDS: Normal Saline Flush 10 ML SYR IVP ×2 (08:15→09:30)
[2019-03-11 08:54] LABS: Absolute Lymphocyte Count 0.55 k/cumm (1.2-3.4); Absolute Monocyte Count 0.01 k/cumm (0.11-0.7); HCT 27.9 % (36.0-46.0); HGB 9.3 g/dL (12.0-15.5); Mean Corp. HGB Concentration 33.3 g/dL (32.0-36.0); Mean Corpuscular Hemoglobin 31.5 pg (27.0-33.0); Mean Corpuscular Volume 94.6 fL (80-95); Mean Platelet Volume 10.5 fL (8.0-11.0); RBC 2.95 m/cumm (4.00-5.20); RBC Distribution Width 17.2 % (11.7-14.6)
[2019-03-11 08:56] LABS: ALT 25 U/L (12-78); AST 12 U/L (15-37); Albumin 3.3 g/dL (3.4-5.0); Alkaline Phosphatase 87 U/L (46-116); Anion Gap 7.7 mmol/L (3-11); BUN 12 mg/dL (7-18); Bilirubin, Total 0.8 mg/dL (0.2-1.0); CO2 28.3 mmol/L (21.0-32.0); CREATININE 0.69 mg/dL (0.55-1.02); Calcium 8.5 mg/dL (8.5-10.1); Chloride 104 mmol/L (98-107); Glucose 89 mg/dL (70-100); Potassium 3.7 mmol/L (3.5-5.1); Sodium 140 mmol/L (136-145); Total Protein 6.7 g/dL (6.4-8.2)
[2019-03-11 09:24] LABS: White Blood Cell Count 0.59 k/cumm (4.4-10.8)
[2019-03-11 09:25] LABS: Absolute Neutrophil Count 0.03 k/cumm (1.2-6.7); Platelet Count 77 x1000/uL (130-400)
[2019-03-11 09:26] LABS: Anisocytosis 1+; Diff Comment Manual Differential; Nucleated RBC 2 /100WBC; Polychromasia Present
[2019-03-11] MEDS: Heparin 500 UNITS/5 ML SYRINGE IV (09:30)
[2019-03-14 09:00] VITALS: BP 149/68; PULSE 76; RESP 18; TEMP 36; O2SAT 98
[2019-03-14 09:00] LABS: HCT 27.6 % (36.0-46.0); HGB 8.9 g/dL (12.0-15.5); Mean Corp. HGB Concentration 32.2 g/dL (32.0-36.0); Mean Corpuscular Hemoglobin 30.8 pg (27.0-33.0); Mean Corpuscular Volume 95.5 fL (80-95); Mean Platelet Volume 9.5 fL (8.0-11.0); RBC 2.89 m/cumm (4.00-5.20)
[2019-03-14] MEDS: Normal Saline Flush 10 ML SYR IVP (09:02)
[2019-03-14 10:18] LABS: White Blood Cell Count 0.44 k/cumm (4.4-10.8)
[2019-03-14 10:19] LABS: Absolute Eosinophil Count 0.01 k/cumm (0.0-0.7); Absolute Neutrophil Count 0.03 k/cumm (1.2-6.7); Platelet Count 351 x1000/uL (130-400)
[2019-03-14 10:20] LABS: Anisocytosis 2+; Basophilic Stippling Present; Diff Comment Manual Differential
[2019-03-14 10:21] LABS: Poikilocytes 1+; Polychromasia Present
[2019-03-28] MEDS: Heparin 500 UNITS/5 ML SYRINGE IV (08:10)
[2019-03-28] MEDS: Normal Saline Flush 10 ML SYR IVP (08:10)
[2019-03-28 08:26] LABS: Abs Immature Grans 1.83 k/cumm (0.0-0.09); HCT 30.9 % (36.0-46.0); HGB 9.6 g/dL (12.0-15.5); Mean Corp. HGB Concentration 31.1 g/dL (32.0-36.0); Mean Corpuscular Hemoglobin 30.1 pg (27.0-33.0); Mean Corpuscular Volume 96.9 fL (80-95); Mean Platelet Volume 10.4 fL (8.0-11.0); RBC 3.19 m/cumm (4.00-5.20); RBC Distribution Width 20.1 % (11.7-14.6); White Blood Cell Count 12.06 k/cumm (4.4-10.8)
[2019-03-28 08:49] LABS: Absolute Eosinophil Count 0.24 k/cumm (0.0-0.7); Absolute Lymphocyte Count 4.82 k/cumm (1.2-3.4); Absolute Monocyte Count 2.17 k/cumm (0.11-0.7); Absolute Neutrophil Count 3.26 k/cumm (1.2-6.7); Platelet Count 550 x1000/uL (130-400)
[2019-03-28 08:50] LABS: Anisocytosis 3+; Diff Comment Manual Differential; Hypochromasia 1+; Microcytosis 1+; Poikilocytes 1+; Polychromasia Present
== END 2019-04-02 23:59 | disposition home or self-care (01) ==
LOC: INF 08:00
PROVIDERS: Surgery; PCP Internal Medicine; Visit Provider Internal Medicine
DX: D46.9 Myelodysplastic syndrome, unspecified (principal); Z45.2 Encounter for adjustment and management of vascular access device; D70.9 Neutropenia, unspecified
CPT/HCPCS: 36430; 36591; 80053; 86850; 86900; 86901; 86920; 86945; 85025; P9016

== ENCOUNTER 2019-04-11 00:59 | Outpatient (RCR) | payer MEDICARE, OTHER, SELFPAY ==
[2019-04-11] MEDS: Heparin 500 UNITS/5 ML SYRINGE IV (09:00)
[2019-04-11] MEDS: Normal Saline Flush 10 ML SYR IVP (09:00)
[2019-04-11 09:16] LABS: Abs Immature Grans 0.01 k/cumm (0.0-0.09); Absolute Basophil Count 0.05 k/cumm (0.0-0.2); Absolute Lymphocyte Count 2.21 k/cumm (1.2-3.4); Absolute Monocyte Count 0.67 k/cumm (0.11-0.7); Eosinophils % 4.1; HCT 31.5 % (36.0-46.0); HGB 9.7 g/dL (12.0-15.5); Immature Grans % 0.2; Lymphocytes % 45.7; Mean Corp. HGB Concentration 30.8 g/dL (32.0-36.0); Mean Corpuscular Hemoglobin 30.9 pg (27.0-33.0); Mean Corpuscular Volume 100.3 fL (80-95); Mean Platelet Volume 10.9 fL (8.0-11.0); Monocytes % 13.8; Neutrophils % 35.2; Platelet Count 496 x1000/uL (130-400); RBC 3.14 m/cumm (4.00-5.20); RBC Distribution Width 20.5 % (11.7-14.6); White Blood Cell Count 4.84 k/cumm (4.4-10.8)
== END 2019-05-02 23:59 | disposition home or self-care (01) ==
LOC: INF 00:59
PROVIDERS: PCP Internal Medicine; Visit Provider Internal Medicine
DX: D46.9 Myelodysplastic syndrome, unspecified (principal); Z45.2 Encounter for adjustment and management of vascular access device
CPT/HCPCS: 36591; 85025